=== PATIENT | female | born 1960 | race Caucasian/White ===

== ENCOUNTER 2024-11-12 10:41 | Outpatient (CLI) | payer MEDICARE, MEDICAID, SELFPAY ==
--- OUTSIDE RECORDS SUMMARY | 2024-11-12 11:10 | XMS_ITS | Clinical Summary ---
Author Organization [facility] Address [address] [place] [address] Care Team Providers Care Sash Sticker Name Role Phone Dean Plascencia MD Primary Care Provider [phone] Allergies Active Allergy Reactions Criticality Noted Date Comments Penicillins Anaphylaxis High 07/19/2024 Sulfa Antibiotics Anaphylaxis High 09/20/2020 Medications SYMBICORT 160-4.5 MCG/ACT inhaler Inhale 2 puffs into the lungs 2 (two) times daily. 12/10/19 23 Active atorvastatin (LIPITOR) 10 MG tablet Take 1 tablet (10 mg total) by mouth nightly at bedtime. 06/14/20 23 Active albuterol sulfate HFA 108 (90 Base) MCG/ACT inhaler Inhale 2 puffs into the lungs every 4 (four) hours as needed for Wheezing or Shortness of breath. 8 g 07/13/19 24 Active cetirizine (ZYRTEC) 10 MG tablet Take 1 tablet (10 mg total) by mouth daily. 30 tablet 08/25/19 24 Active Additional Information Patient not taking.Reported on 02/01/2024 hydroCHLOROthiazid e (MICROZIDE) 12.5 MG capsule Take 1 capsule (12.5 mg total) by mouth every morning. 30 capsule 11/28/19 24 Active Additional Information Patient not taking.Reported on 02/01/2024 montelukast (SINGULAIR) 10 MG tablet Take 1 tablet (10 mg total) by mouth daily. 01/22/20 24 Active lidocaine 4 % patch Place 1 patch onto the skin daily. Remove & Discard patch within 12 hours or as directed by 30 patch 02/03/20 24 Active metroNIDAZOLE (FLAGYL) 500 MG tablet Take 1 tablet (500 mg total) by mouth every 8 (eight) hours. 26 tablet 02/03/20 24 Active famotidine (PEPCID) 20 MG tablet Take 1 tablet (20 mg total) by mouth every 12 (twelve) hours. 60 tablet 02/03/20 24 Active ondansetron (ZOFRAN-ODT) 8 MG disintegrating tabletIndications: Diverticulitis Take 1 tablet (8 mg total) by mouth every 6 (six) hours. 7 tablet 02/03/20 24 Active Active Problems Problem Noted Date Diagnosed Date Diverticulitis 02/01/2024 Chest wall pain 09/20/2022 Chronic obstructive pulmonary disease ([facility] 09/20/2022 Resolved Problems Problem Noted Date Diagnosed Date Resolved Date COPD exacerbation ([facility]) 07/12/2023 02/03/2024 Lightheadedness 05/21/2023 05/22/2023 Syncope and collapse 11/21/2019 024 Encounters Date Type Department Care Team Description 09/10/2024 1:26 PM CABLE LACER - 09/10/2024 5:55 PM [facility] Emergency [facility] [place] [address] Michael Waggoner NP Chest Pain Discharge Disposition: Home or Self Care (Routine Discharge) 09/10/2024 Travel 09/09/2024 9:55 AM CABLE LACER - 09/09/2024 11:59 PM [facility] Hospital Encounter [facility] [place] [address] Daen Plascencia MD Discharge Disposition: Home or Self Care (Routine Discharge) 09/08/2024 2:23 PM CABLE LACER - 09/08/2024 11:59 PM [facility] Hospital Encounter [facility] [place] [address] Dean Plascencia MD Discharge Disposition: Home or Self Care (Routine Discharge) 09/08/2024 Travel 08/24/2024 Telephone [facility], [address] [address] Macario Dent MD Schedule Test from Last 3 Months Immunizations Immunization Administration Dates Next Due PFIZER COVID-19 (ORIGINAL FO RMULATION, PURPLE CAP) mRNA, LNP-S, PF, 30 MCG/0.3 ML DOSE 10/06/2020,09/16/2020 Tdap (Boostrix) 01/04/2024 Social History Tobacco Use Types Packs/Day Years Used Date Smoking Tobacco: Former Smokeless Tobacco: Never Tobacco Cessation:Counseling Given: Not Answered Alcohol Use Standard Drinks/Week Comments Never 0 (1 standard drink = 0.6 oz pur e alcohol) B1300 Health Literacy Answer Date Recor ded How often do you need to hav e someone help you when you read instructions, pamphlets, or other written material from your doctor or pharmacy? Often 02/01/2024 [facility] Utilities Answer Date Recorded In the past 12 months has e [employer], gas, oil, or water [employer] threatened to shut off services in your home? No 02/01/2024 Humiliation, Afraid, Rape, and Kick questionnair e Answer Date Recorded Within the last year, have y ou been afraid of your partner or ex-partner? No 02/01/2024 Within the last year, have y ou been humiliated or emotionally abused in other ways by your partner or ex-partner? No Within the last year, have y ou been kicked, hit, slapped, or otherwise physically hurt by your partner or ex-partner? No 02/01/2024 Within the last year, have y ou been raped or forced to have any kind of sexual activity by your partner or ex-partner? No 02/01/2024 Social Connection and Isolat ion Panel [NHANES] Answer Date Recorded In a typical week, how many times do you talk on the phone with family, friends, or neighbors? More than three times a week 02/01/2024 How often do you get togethe r with friends or relatives? More than three times a week 02/01/2024 How often do you attend [facility] or pentecostalism services? 1 to 4 times per year 02/01/2024 Do you belong to any clubs o r organizations such as jain groups, unions, fraternal or athletic groups, or school groups? No 02/01/2024 How often do you attend meet ings of the clubs or organizations you belong to? Never 02/01/2024 Are you , , di vorced, , never , or living with a partner? Never 02/01/2024 AUDIT-C Answer Date Recorded Q1: How often do you have a drink containing alcohol? Never 02/01/2024 Q2: How many drinks containi ng alcohol do you have on a typical day when you are drinking? Patient does not drink Q3: How often do you have si x or more drinks on one occasion? Never 02/01/2024 Overall Financial Resource Strain (CARDIA) Answe r Date Recorded How hard is it for you to pa y for the very basics like food, housing, medical care, and heating? Not hard at all 02/01/2024 [facility] - Occupational Stress Questionnaire Answer Date Recorded Do you feel stress - tense, restless, nervous, or anxious, or unable to sleep at night because your mind is troubled all the time - these days? Only a little 02/01/2024 Exercise Vital Sign Answer Date Recorde d On average, how many days pe r week do you engage in moderate to strenuous exercise (like a brisk walk)? 0 days 02/01/2024 On average, how many minutes do you engage in exercise at this level? 0 min 02/01/2024 Hunger Vital Sign Answer Date Recorded Within the past 12 months, y ou worried that your food would run out before you got the money to buy more. Often true 02/01/20 24 Within the past 12 months, t he food you bought just didn't last and you didn't have money to get more. Often true 02/01/2024 PRAPARE - Transportation Answer Date Re corded In the past 12 months, has l ack of transportation kept you from medical appointments or from getting medications? No 01/06 In the past 12 months, has l ack of transportation kept you from meetings, work, or from getting things needed for daily living? No 02/01/2024 Housing Stability Vital Sign Answer Juan e Recorded In the last 12 months, was t here a time when you were not able to pay the mortgage or rent on time? No 07/12/2023 In the last 12 months, how many places have you lived? 1 07/12/2023 In the last 12 months, was t here a time when you did not have a steady place to sleep or slept in a [place] (including now)? No 07/12/2023 Housing Stability Vital Sign Answer Juan e Recorded In the last 12 months, was t here a time when you were not able to pay the mortgage or rent on time? No 02/01/2024 In the past 12 months, how m any times have you moved where you were living? 1 02/01/2024 At any time in the past 12 m [facility], were you homeless or living in a [place] facility (including now)? No 02/01/2024 Comments No Sex and Gender Information Value Date Recorded Sex Assigned at Female 09/08/2024 2:19 PM CABLE LACER Legal Sex Female 7:01 PM CDT Gender Identity Not on file Sexual Orientation Not on file Last Filed Vital Signs Vital Sign Reading Time Taken Comments Blood Pressure 148/62 09/10/2024 5:54 PM CABLE LACER Pulse 62 09/10/2024 5:54 PM CABLE LACER Temperature 36.9 C (98.5 F) 09/10/2024 1:27 PM CABLE LACER Respiratory Rate 16 09/10/2024 5:54 PM CABLE LACER Oxygen Saturation 100% 09/10/2024 1:27 PM CABLE LACER Inhaled Oxygen Concentration - - Weight 81.6 kg (180 lb) 09/10/2024 1:27 PM CABLE LACER Height 149.9 cm (4' 11 ) 09/10/2024 1:27 PM CABLE LACER Body Mass Index 36.36 09/10/2024 1:27 PM CABLE LACER Plan of Treatment Health Maintenance Due Date Last Done Comments Colorectal Cancer Screening Colonoscopy (10 Years) 1958 Hepatitis C 1976 Pneumococcal Vaccine: 50+ Years (1 of 2 - PCV) 1977 Mammogram Screening 1998 Zoster Vaccines (1 of 2) 2008 RSV Immunization or 60+ Years (1 - Risk 60-74 years 1-dose series) 2018 Dexa Scan (General) 12/25/2023 COVID-19 Vaccine (3 - 2023-2 5 season) 2024 10/06/2020, 09/16/2020 DTaP, Tdap and Td Vaccines ( 3 - Td or Tdap) 01/03/2034 01/04/2024, 11/10/2021 Meningococcal B Vaccine Aged Out No l onger eligible based on patient's age to complete this topic Meningococcal Vaccine Aged Out No susana shubham eligible based on patient's age to complete this topic RSV Immunizations Under 20 Months Aged Out No longer eligible b ased on patient's age to complete this topic Goals Goal Patient Goal Type Associated Problems Recent Progress Patient-Stated? Author Health - patient able to perform ADLs independently Lifestyle Diamond Watkins RN Procedures Procedure Name Priority Date/Time Associated Diagnosis Comments TROPONIN, QUANT STAT 09/10/2024 4:35 PM CABLE LACER ECG 12-LEAD STAT 09/10/2024 4:27 PM CABLE LACER XR CHEST PORTABLE STAT 09/10/2024 1:4 4 PM CABLE LACER CK (CPK) STAT 09/10/2024 1:44 PM CABLE LACER TROPONIN, QUANT STAT 09/10/2024 1:44 PM CABLE LACER COMPREHENSIVE METABOLIC PANEL STAT 09/10/2024 1:44 PM CABLE LACER CBC W/DIFF AUTOMATED STAT 09/10/2024 1:44 PM CABLE LACER ECG 12-LEAD STAT 09/10/2024 1:27 PM CABLE LACER NM PHARM NUC STRESS TEST 1DAY W TRACING Routine 09/09/2024 11:51 AM CABLE LACER BAPTISTE (dyspnea on exertion) CARDIOLOGY STRESS TEST ONLY, EXERCISE Routine 09/09/2024 10:02 AM CABLE LACER BAPTISTE (dyspnea on exertion) Chronic obstructive pulmonary disease (CMS/HCC HHS/HCC) Chest wall pain USE ECHOCARDIOGRAM Routine 09/08/2024 4: 02 PM CABLE LACER Other forms of dyspnea from Last 3 Months Results * TROPONIN, QUANT (09/10/2024 4:35 PM CABLE LACER) Only the most recent of2 resultswithin the time period is included. TROPONIN I HIGH SENSITIVITY 9 <54 ng/L 09/10/2024 5:27 PM CABLE LACER [facility] Comment: HIGH DOSES OF BIOTIN, TROPONIN-SPECIFIC AUTOANTIBODIES, AND ANTIBODY THERAPY CONTAINING HAMA MAY INTERFERE WITH THIS TEST RESULT. CORRELATION TO CLINICAL HISTORY AND PRESENTATION RECOMMENDED. 09/10/2024 4:35 PM CABLE LACER Michael Waggoner PHYSICAL SCIENCE TECHNICIAN LABORATORY Final Result [facility] [address] [place] [address], * ECG 12 lead (09/10/2024 4:27 PM CABLE LACER) Only the most recent of2 resultswithin the time period is included. 09/10/2024 4:27 PM CABLE LACER Narrative [facility] RAD - 09/10/2024 11:10 PM CABLE LACER [address] Test Date: 2024-09-10 Pat Name: CHANEL URBANO Department: 41 Room: [facility] Gender: Female [employer]: : 1960 Requested By: LUIS E BOGGS Order Number: [id number] Reading MD: Sarah Mobley Measurements Intervals [place] Rate: 71 P: 18 [place]: 158 QRS: 16 QRSD: 70 T: 52 QT: 380 QTc: 413 Interpretive Statements SINUS RHYTHM LOW QRS VOLTAGE IN PRECORDIAL LEADS [QRS DEFLECTION < 1.0 mV IN CHEST LEADS] Compared to ECG 09/10/2024 13:27:34 No significant changes E LACER Procedure Note Sarah Mobley MD - 09/10/[address] Test Date: 2024-09-10 Pat Name: CHANEL URBANO Department: 41 Room: [id number] Gender: Female [employer]: : 1960 Requested By: LUIS E BOGGS Order Number: [id number] Reading MD: Sarah Mobley Measurements Intervals [place] Rate: 71 P: 18 [place]: 158 QRS: 16 QRSD: 70 T: 52 QT: 380 QTc: 413 Interpretive Statements SINUS RHYTHM LOW QRS VOLTAGE IN PRECORDIAL LEADS [QRS DEFLECTION < 1.0 mV IN CHESTLEADS] Compared to ECG 09/10/2024 13:27:34 No significant changes E LACER us Michael Waggoner NP ECG ORDERABLES Final Result [facility] RAD * XR CHEST PORTABLE (09/10/2024 1:44 PM CABLE LACER) Anatomical Region Laterality Modality Chest Radiographic Cary ging 09/10/2024 1:45 PM CABLE LACER Impressions 09/10/2024 1:49 PM CABLE LACER Impression: No acute findings. Referred By: Interpreted By: Ezekiel John MD, 09/10/2024 1:45 PM Narrative 09/10/2024 1:49 PM CABLE LACER [address] [address] Examination: Chest 1 view portable History: Chest pain DATE/TIME: 09/10/2024 1:30 PM Comparison: 07/19/2024 Technique: AP upright portable view of the chest was obtained. Findings: Mildly prominent heart size. Mediastinal contours and pulmonary vasculature are within normal limits. No pulmonary consolidation, pleural effusion or pneumothorax. No acute osseous abnormality. Procedure Note Ezekiel John MD - 03/06/2025 [facility] [address] [place], [place] [address] Examination: Chest 1 view portable History: Chest pain DATE/TIME: 09/10/2024 1:30 PM Comparison: 07/19/2024 Technique: AP upright portable view of the chest was obtained. Findings: Mildly prominent heart size. Mediastinal contours and pulmonaryvasculature are within normal limits. No pulmonary consolidation, pleuraleffusion or pneumothorax. No acute osseous abnormality. Impression: No acute findings. Referred By: Interpreted By: Ezekiel John MD, 09/10/2024 1:45 PM Michael Waggoner NP GENERAL IMAGING Final Result * (ABNORMAL) COMPREHENSIVE METABOLIC PANEL (09/10/2024 1:44 PM CABLE LACER) GLUCOSE 107(H) 70 - 99 MG/DL 09/10/2024 2:27 PM CABLE LACER [facility] BUN 12 7 - 18 MG/DL 09/10/2024 2:27 PM CABLE LACER [facility] CREATININE S/P/B 0.71 0.55 - 1.02 MG/DL 09/10/2024 2:27 PM CABLE LACER [facility] SODIUM S/P/B 137 136 - 145 MMOL/L 09/10/2024 2:27 PM CABLE LACER [facility] POTASSIUM S/P/B 3.8 3.5 - 5.1 MMOL/L 09/10/2024 2:27 PM CABLE LACER [facility] CHLORIDE S/P/B 105 97 - 115 MMOL/L 09/10/2024 2:27 PM [facility] CO2 24.0 21 - 32 MMOL/L 09/10/2024 2:27 PM [facility] CALCIUM S/P/B 9.2 8.5 - 10.1 MG/DL 09/10/2024 2:27 PM [facility] BILIRUBIN TOTAL S/P/B 0.4 0.2 - 1.2 MG/DL 09/10/2024 2:27 PM [facility] Comment: THIS ASSAY IS NOT RECOMMENDED FOR PATIENTS UNDERGOING TREATMENT WITH ELTROMBOPAG DUE TO THE POTENTIAL FOR FALSELY ELEVATED RESULTS. TOTAL PROTEIN S/P/B 7.8 6.4 - 8.2 G/DL 09/10/2024 2:27 PM [facility] ALBUMIN S/P/B 3.3(L) 3.4 - 5.0 G/DL 09/10/2024 2:27 PM [facility] AST 18 15 - 37 U/L 09/10/2024 2:27 PM [facility] ALT 23 14 - 55 U/L 09/10/2024 2:27 PM [facility] ALKALINE PHOSPHATASE S/P/B 134 50 - 136 U/L 09/10/2024 2:27 PM [facility] ANION GAP 8.0 2 - 10 MMOL/L 09/10/2024 2:27 PM [facility] BUN CREATININE RATIO 16.9 6 - 26 09/10/2024 2:27 PM [facility] A/G RATIO 0.7(L) 1.0 - 2.0 RATIO 09/10/2024 2:27 PM [facility] GFR ESTIMATE >90 >90 ML/MIN/1.7 3 M2 09/10/2024 2:27 PM [facility] Comment: NOTE: eGFR is not calculated for patients <18 years of age or gender unknown. This is an estimated GFR calculation using the new CKD EPI creatinine equation without race and so does not require a correction factor for race. This estimated GFR should not be used for calculating drug doses. 09/10/2024 1:44 PM CABLE LACER Michael Mcclendon Edilson PHYSICAL SCIENCE TECHNICIAN LABORATORY Final Result [facility] [address] [place] [address], [place] [phone] * (ABNORMAL) CBC W/DIFF AUTOMATED (09/10/2024 1:44 PM CABLE LACER) WBC 11.27(H) 4.5 - 11.0 x10'3/uL 09/10/2024 1:57 PM CABLE LACER [facility] RBC 4.67 4.20 - 5.40 x10'6/uL 09/10/2024 1:57 PM CABLE LACER [facility] HGB 13.5 12.0 - 16.0 G/DL 09/10/2024 1:57 PM CABLE LACER [facility] HCT 41.6 38.0 - 48.0 % 09/10/2024 1:57 PM CABLE LACER [facility] MCV 89.1 81.0 - 99.0 FL 09/10/2024 1:57 PM CABLE LACER [facility] MCH 28.9 27.0 - 31.0 PG 09/10/2024 1:57 PM CABLE LACER [facility] MCHC 32.5 32.0 - 36.0 G/DL 09/10/2024 1:57 PM CABLE LACER [facility] RDW 13.3 11.5 - 14.5 % 09/10/2024 1:57 PM CABLE LACER [facility] PLT 339 130 - 400 x10'3/uL 09/10/2024 1:57 PM CABLE LACER [facility] MPV 9.5 9.3 - 12.2 FL 09/10/2024 1:57 PM CABLE LACER [facility] DIFFERENTIAL TYPE AUTOMATED DIFFERENTIAL 09/10/2024 1:57 PM CABLE LACER [facility] NEUTROPHILS % 74.0 % 09/10/2024 1:57 PM CABLE LACER [facility] LYMPHOCYTES % 17.6 % 09/10/2024 1:57 PM CABLE LACER [facility] MONOCYTES % 5.9 % 09/10/2024 1:57 PM CABLE LACER [facility] EOSINOPHILS 1.5 % 09/10/2024 1:57 PM CABLE LACER [facility] BASOPHILS 0.4 % 09/10/2024 1:57 PM CABLE LACER [facility] IMMATURE GRANS % 0.6 % 09/11/19 1:57 PM CABLE LACER [facility] ABS. NEUTROPHILS 8.34(H) 1.80 - 7.70 x10'3/uL 09/10/2024 1:57 PM CABLE LACER [facility] ABS. LYMPHOCYTES 1.98 1.00 - 4.80 x10'3/uL 09/10/2024 1:57 PM CABLE LACER [facility] ABS. MONOCYTES 0.66 0.24 - 0.86 x10'3/uL 09/10/2024 1:57 PM CABLE LACER [facility] ABS. EOSINOPHILS 0.17 0.04 - 0.36 x10'3/uL 09/10/2024 1:57 PM CABLE LACER [facility] ABS. BASOPHILS 0.05 0.01 - 0.08 x10'3/uL 09/10/2024 1:57 PM CABLE LACER [facility] ABS. IMMATURE GRANULOCYTES 0.07 0.00 - 0.49 x10'3/uL 09/10/2024 1:57 PM CABLE LACER [facility] 09/10/2024 1:44 PM CABLE LACER us Michael Waggoner NP LABORATORY Final Result [facility] [address] [place] [address], [place] [phone] * CK (CPK) (09/10/2024 1:44 PM CABLE LACER) CPK 38 21 - 215 U/L 09/10/2024 2:26 PM CABLE LACER [facility] 09/10/2024 1:44 PM CABLE LACER Michael Waggoner PHYSICAL SCIENCE TECHNICIAN LABORATORY Final Result [facility] [address] [place] [address], [place] [phone] * NM PHARM NUC STRESS TEST 1 DAY W TRACING (09/09/2024 11:51 AM CABLE LACER) Anatomical Region Laterality Modality Cardiac Nuclear Medicine 09/09/2024 10:3 4 AM CABLE LACER Narrative 09/11/2024 7:58 AM CABLE LACER Myocardial Perfusion Imaging Pat.Name: CHANEL URBANO.ID: [id number] .Date: 09/09/2024 Refer.MD: Dean Plascencia [id number] Exam Time: 10:34:00 AM Study Type:DEMI NC HT MUSCLE IMAGE SPECT MULTI Height: 59 in Weight: 178 lb BSA: 1.75 m2 Age: 6 1960,63Y Sex: F Sonogrphr: TYRESE Velasco Pat. Stat.:Outpatient Reason for Study:Chest pain, Shortness of breath, Left arm pain, Back pain History / Clinical:COPD Procedures: Nuclear Stress Test with Lexiscan Race: W Surgery: Nuclear Stress Test, Echocardiogram, Stress Echo ++++++++++++++++++++++++++++++++++++ SUMMARY: ++++++++++++++++++++++++++++++++++++ Stress conclusion: 1. Clinically negative. 2. Electrocardiographically negative stress test for ischemia. 3. Scintigraphic images to follow. Perfusion conclusion: 1. Good study quality. No motion correction was applied to images. No attenuation is noted. Prone imaging was performed. 2. Normal myocardial perfusion SPECT imaging. 3. Normal wall motion with an ejection fraction of 91%. 4. Stress test with myocardial perfusion imaging shows overall low risk for a cardiac event. ++++++++++++++++++++++++++++++++++++ FINDINGS: ++++++++++++++++++++++++++++++++++++ Protocol: Lexiscan 0.4mg was given as a rapid injection IV over a period of 10 seconds with the radiopharmaceutical injected at 20 seconds. The images were processed using the standard SPECT technique. A gated study was performed on the stress images. Impression: SPECT images demonstrate normal perfusion of normal intensity. Heart Size: The left ventricle is normal. LV Wall Motion: The LVEF is calculated to be 91%. Gated SPECT images reveal normal wall motion. Transient Ischemic Dilatation: The TID is 0.85. ++++++++++++++++++++++++++++++++++++ STRESS: ++++++++++++++++++++++++++++++++++++ Baseline Vital Signs: ECG: Sinus rhythm HR: 67 bmp Rest BP: 159/79 Regadenoson Peak Dose: 0.4 mg Stress Test Results: Max HR: 97 bmp Target HR: 155 bmp % Target: 63 % Max BP: 167/90 Max RPP: [id number] O2 sat: 100 % Symptoms and Complications: Terminated: Protocol completed Symptoms: Nausea Complications: None Stress ECG Interp: Sinus rhythm <Electronic Signature> 09/11/2024 07:58 AM Macario Dent M.D. Procedure Note Macario Dent MD - 09/11/2024 Myocardial Perfusion Imaging Pat.Name: CHANEL URBANO.ID: [id number] .Date: 09/09/2024 Refer.MD: Dean Plascencia [id number] Exam Time: 10:34:00 AM Study Type:DEMI NC HT MUSCLE IMAGE SPECT MULTI Height: 59 in Weight: 178 lb BSA: 1.75 m2 Age: 6 1960,63Y Sex: F Sonogrphr: TYRESE Velasco Pat. Stat.:Outpatient Reason for Study:Chest pain, Shortness of breath, Left arm pain, Back pain History / Clinical:COPD Procedures: Nuclear Stress Test with Lexiscan Race: W Surgery: Nuclear Stress Test, Echocardiogram, Stress Echo ++++++++++++++++++++++++++++++++++++ SUMMARY: ++++++++++++++++++++++++++++++++++++ Stress conclusion: 1. Clinically negative. 2. Electrocardiographically negative stress test for ischemia. 3. Scintigraphic images to follow. Perfusion conclusion: 1. Good study quality. No motion correction was applied to images. No attenuation is noted. Prone imaging was performed. 2. Normal myocardial perfusion SPECT imaging. 3. Normal wall motion with an ejection fraction of 91%. 4. Stress test with myocardial perfusion imaging shows overall low risk for a cardiac event. ++++++++++++++++++++++++++++++++++++ FINDINGS: ++++++++++++++++++++++++++++++++++++ Protocol: Lexiscan 0.4mg was given as a rapid injection IV over a period of 10 seconds with the radiopharmaceutical injected at 20 seconds. The images were processed using the standard SPECT technique. A gated study was performed on the stress images. Impression: SPECT images demonstrate normal perfusion of normal intensity. Heart Size: The left ventricle is normal. LV Wall Motion: The LVEF is calculated to be 91%. Gated SPECT images reveal normal wall motion. Transient Ischemic Dilatation: The TID is 0.85. ++++++++++++++++++++++++++++++++++++ STRESS: ++++++++++++++++++++++++++++++++++++ Baseline Vital Signs: ECG: Sinus rhythm HR: 67 bmp Rest BP: 159/79 Regadenoson Peak Dose: 0.4 mg Stress Test Results: Max HR: 97 bmp Target HR: 155 bmp % Target: 63 % Max BP: 167/90 Max RPP: 42046 O2 sat: 100 % Symptoms and Complications: Terminated: Protocol completed Symptoms: Nausea Complications: None Stress ECG Interp: Sinus rhythm <Electronic Signature> 09/11/2024 07:58 AM Macario Dent M.D. us Dean Plascencia MD NUC MED Final Result * USE ECHOCARDIOGRAM (09/08/2024 4:02 PM CABLE LACER) Anatomical Region Laterality Modality Cardiac Echocardiogram 09/08/2024 3:25 PM CABLE LACER Narrative 09/08/2024 8:51 PM CABLE LACER Echocardiography Report Pat.Name: CHANEL URBANO Pat.ID: [id number] .Date: 09/08/2024 Refer.: [id number] CLARA Mcclendon EWDPROV EWDPROV Exam Time: 3:25:00 PM Study Type:ECHO WITH CARDIAC DOPPLER COMP Height: 59 in Weight: 178 lb BSA: 1.75 m2 Age: 6 1960,63Y Sex: F BP: 144/80 HR: 69 bpm Sonogrphr: Katt Browning Pat. Stat.:Outpatient Reason for Study:Shortness of breath History / Clinical:Family history CAD, Ex-Smoker Procedures: 2D, M-mode, Doppler, Color Flow, The study quality is technically adequate. Race: W ++++++++++++++++++++++++++++++++++++ SUMMARY: ++++++++++++++++++++++++++++++++++++ The left ventricular systolic function is normal. Estimated left ventricular ejection fraction is 55-60%. Left ventricular diastolic function is normal. Wall motion appears normal in all segments. Mild aortic valve sclerosis. Compared to the previous study the ejection fraction has remained preserved. ++++++++++++++++++++++++++++++++++++ FINDINGS: ++++++++++++++++++++++++++++++++++++ LV: The left ventricular size is normal. The left ventricular systolic function is normal. Estimated left ventricular ejection fraction is 55-60%. There is no left ventricular hypertrophy. Left ventricular diastolic function is normal. WM: Wall motion appears normal in all segments. RV: The right ventricular size is normal. Right ventricular systolic function is normal. IVS: No evidence of ventricular septal defect. LA: The left atrial size is normal. The left atrial volume is normal ( less than 34 ml/M2). RA: Right atrial size is normal. IAS: Atrial septum appears intact. LUAN: No evidence of pericardial effusion. AO: Aorta is normal. PA: Estimated right atrial pressure of 3 mmHg. Unable to reliably quantitate pulmonary systolic pressure. SVn: Systemic veins are normal. Other: Compared to the previous study the ejection fraction has remained preserved. AV: The aortic valve is trileaflet. No evidence of aortic valve stenosis. No evidence of aortic valve regurgitation. Mild aortic valve sclerosis. MV: Structurally normal mitral valve. Trace mitral regurgitation. No evidence of mitral stenosis. PV: Trace pulmonic regurgitation. No evidence of pulmonic valve stenosis. Pulmonic valve not well visualized. TV: No evidence of tricuspid regurgitation. No evidence of tricuspid valve stenosis. ++++++++++++++++++++++++++++++++++++ MEASUREMENTS: ++++++++++++++++++++++++++++++++++++ DOPPLER LVOT LVOTpkPG 4.62 mmHg LVOTmnPG 1.98 mmHg LVOTpkVel 107 cm/s (70-110)+ LVOT CO 4.4 l/min LVOT TVI 23.7 cm AV Forward Flow AV AC/ET 0.167 AV pkPG 7.3 mmHg AV mnPG 4.13 mmHg Area (TVI) 1.28 cm2 (3-5)* AV AT 50 msec (83-118)+* Area (Danny) 1.24 cm2 (3-5)* AV ET 297 msec MV Forward Flow MV DeTm 254 msec MV E/A 0.751 MVA P1/2t 2.98 cm2 (4-6)* MV pkE 73.8 cm/s (60-130) MV P1/2t 74 msec (30-60)* MV pkA 98.3 cm/s Lat E' Lat e 9.04 cm/s Lat E/E' Lat E/e 8.16 Med E' Med e 5.7 cm/s Med E/E' Med E/e 12.9 Aortic Valve Mean Velocity 96.9 cm/s AV TVI 28.8 cm Peak Velocity 135 cm/s AV Continuity Equation by Peak Velocity Area 2.18 cm2 AV Continuity Equation by Velocity Time Integral Area 2.25 cm2 Left Ventricle Left Ventricula 151 mmHg Composite heart 68 bpm Mitral Valve Decel [place] 279 cm/s2 Mitral Valve A 1.33 HR 67 bpm Pulmonic Valve AC 90.5 millisecond Peak Velocity 104 cm/s PG mean 2.17 mmHg VTI 0.218 m Mean Velocity 67.9 cm/s PV ET 320 millisecond PG pk 4.33 mmHg PV AT/ET 0.282 Tricuspid Valve TV Free Wall Sa 8.23 cm/s 2D Left Ventricle LV CI 2.49 l/m/m2 LV vol d MOD A4 2.29 cm LVIDd 4.62 cm (4.3-5.1) LV vol d MOD A4 3.08 cm LVIDs 2.96 cm (2-4) LV vol d MOD A4 2.68 cm LV%fs 35.8 % (25-46) LV vol d MOD A4 2.68 cm LV CI 1.06 l/m/m2 LV vol d MOD A4 2.54 cm LV CI 0.703 l/m/m2 LV vol d MOD A4 2.46 cm LV CO 1.86 l/min LV vol d MOD A4 2.34 cm LV CO 1.23 l/min LV vol d MOD A4 2.24 cm LV CO BP 1.45 l/min LV vol d MOD A4 2.07 cm LV SV 27.6 ml LV vol d MOD A4 1.87 cm LV SV 18.7 ml LV vol d MOD A4 1.45 cm LV SV BP 21.7 ml LV vol d MOD A4 0.911 cm Left Ventricle 7.71 cm LV vol d MOD A4 2.81 cm Left Ventricle 7.43 cm LV vol d MOD A4 2.29 cm LV Semi-major A 6.87 cm LV vol d MOD A4 2.22 cm Left Ventricle 6.69 cm LV vol d MOD A4 2.26 cm Left Ventricle 5.96 cm LV vol d MOD A4 2.34 cm Left Ventricle 6.69 cm LV vol d MOD A4 2.39 cm LV Trunc Semi-m 0.567 cm LV vol d MOD A4 2.44 cm LV Area reyez 20 cm2 LV vol d MOD A4 2.56 cm LV Area reyez 17.5 cm2 LV vol s MOD A2 3.07 cm LVA% 41.4 % LV vol s MOD A2 3.05 cm LVA% 47.8 % LV vol s MOD A2 1.38 cm LV Area sys 11.7 cm2 LV vol s MOD A2 1.32 cm LV Area sys 9.13 cm2 LV vol s MOD A2 1.2 cm LV EF 61.1 % LV vol s MOD A2 1.25 cm LV EF 58.4 % LV vol s MOD A2 1.25 cm LV EF BP 57.5 % LV vol s MOD A2 1.2 cm LV EDV 45.2 ml LV vol s MOD A2 1.13 cm LV EDV 32 ml LV vol s MOD A2 1.04 cm LVEDV BP 21.5 ml LV vol s MOD A2 1.04 cm LV ESV 17.6 ml LV vol s MOD A2 0.877 cm LV ESV 13.3 ml LV vol s MOD A2 2.88 cm LVESV BP 9.14 ml LV vol s MOD A2 2.58 cm LV Mass 0.793 g/cm LV vol s MOD A2 2.38 cm Composite heart 68 bpm LV vol s MOD A2 2.12 cm Composite heart 66 bpm LV vol s MOD A2 1.75 cm Composite heart 68 bpm LV vol s MOD A2 1.52 cm Composite heart 67 bpm LV vol s MOD A2 1.43 cm Composite heart 68 bpm LV vol s MOD A2 1.34 cm LV vol d MOD A2 3.04 cm LV vol s MOD A4 2.27 cm LV vol d MOD A2 3.49 cm LV vol s MOD A4 2.61 cm LV vol d MOD A2 2.76 cm LV vol s MOD A4 1.33 cm LV vol d MOD A2 2.53 cm LV vol s MOD A4 1.21 cm LV vol d MOD A2 2.28 cm LV vol s MOD A4 1.11 cm LV vol d MOD A2 2.16 cm LV vol s MOD A4 1.04 cm LV vol d MOD A2 2.05 cm LV vol s MOD A4 1.03 cm LV vol d MOD A2 1.88 cm LV vol s MOD A4 1.03 cm LV vol d MOD A2 1.69 cm LV vol s MOD A4 0.96 cm LV vol d MOD A2 1.55 cm LV vol s MOD A4 0.911 cm LV vol d MOD A2 1.09 cm LV vol s MOD A4 0.665 cm LV vol d MOD A2 0.372 cm LV vol s MOD A4 0.296 cm LV vol d MOD A2 3.58 cm LV vol s MOD A4 2.68 cm LV vol d MOD A2 3.63 cm LV vol s MOD A4 2.64 cm LV vol d MOD A2 3.58 cm LV vol s MOD A4 2.46 cm LV vol d MOD A2 3.41 cm LV vol s MOD A4 2.17 cm LV vol d MOD A2 3.3 cm LV vol s MOD A4 1.85 cm LV vol d MOD A2 3.18 cm LV vol s MOD A4 1.63 cm LV vol d MOD A2 3.07 cm LV vol s MOD A4 1.45 cm LV vol d MOD A2 2.95 cm LV vol s MOD A4 1.3 cm LVPW LVPWd 0.837 cm Left Atrium LA a-p 3.13 cm (2.8-3.4) Major [place] (Sys 4.65 cm LA VOLBP 33.7 ml [place] (Sys 4.13 cm Rodriguez Disk Nu 9 Ratios IVS Ventricular Septum IVSd 0.766 cm Aorta AO Ds 3.33 cm Ascending Aorti 3.61 cm LV Area-Length Biplane LVEDV 38.5 ml LVESV 13.6 ml LV Area-Length Single Plane LVEDV 44 ml LVESV 17.4 ml LVEDV 34.9 ml LVESV 11.9 ml LVOT LVOTArea 2.74 cm2 Cardiovascular 1.87 cm Pulmonary Veins Pul Vn A Dur 122 millisecond Pul Vn sys Vmax 70 cm/s Pul Vein Atrial 24.6 cm/s Pul Vn sys/reyez 1.49 Pul Vn Reyez Pk 46.9 cm/s Right Atrium [place] (Sys 4.56 cm Rodriguez Disk Nu 9 HR 67 bpm RA Area-Length Single Plane Volume (Systole 10.6 ml/m2 RA Single Plane RA sys Area 9.97 cm2 Volume (Systole 17.9 ml Right Ventricle [place] (Velia 7.09 cm Minor [place] (Velia 1.74 cm HR 67 bpm TA Cardiovascular 2.4 cm MMODE Left Ventricle Heart Rate-Ailyn 406 millisecond Composite HR fo 68 bpm Composite heart 68 bpm Tricuspid Valve Tricuspid annul 1.85 cm <Electronic Signature> 09/08/2024 08:51 PM Sarah Mobley M.D. Procedure Note Sarah Mobley MD - 09/08/2024 Echocardiography Report Pat.Name: CHANEL URBANO.ID: [id number] .Date: 09/08/2024 Refer.MD: [id number] CLARA Mcclendon EWDPROV EWDPROV Exam Time: 3:25:00 PM Study Type:ECHO WITH CARDIAC DOPPLER COMP Height: 59 in Weight: 178 lb BSA: 1.75 m2 Age: 6 1960,63Y Sex: F BP: 144/80 HR: 69 bpm Sonogrphr: Katt Browning Pat. Stat.:Outpatient Reason for Study:Shortness of breath History / Clinical:Family history CAD, Ex-Smoker Procedures: 2D, M-mode, Doppler, Color Flow, The study quality is technically adequate. Race: W ++++++++++++++++++++++++++++++++++++ SUMMARY: ++++++++++++++++++++++++++++++++++++ The left ventricular systolic function is normal. Estimated left ventricular ejection fraction is 55-60%. Left ventricular diastolic function is normal. Wall motion appears normal in all segments. Mild aortic valve sclerosis. Compared to the previous study the ejection fraction has remained preserved. ++++++++++++++++++++++++++++++++++++ FINDINGS: ++++++++++++++++++++++++++++++++++++ LV: The left ventricular size is normal. The left ventricular systolic function is normal. Estimated left ventricular ejection fraction is 55-60%. There is no left ventricular hypertrophy. Left ventricular diastolic function is normal. WM: Wall motion appears normal in all segments. RV: The right ventricular size is normal. Right ventricular systolic function is normal. IVS: No evidence of ventricular septal defect. LA: The left atrial size is normal. The left atrial volume is normal ( less than 34 ml/M2). RA: Right atrial size is normal. IAS: Atrial septum appears intact. LUAN: No evidence of pericardial effusion. AO: Aorta is normal. PA: Estimated right atrial pressure of 3 mmHg. Unable to reliably quantitate pulmonary systolic pressure. SVn: Systemic veins are normal. Other: Compared to the previous study the ejection fraction has remained preserved. AV: The aortic valve is trileaflet. No evidence of aortic valve stenosis. No evidence of aortic valve regurgitation. Mild aortic valve sclerosis. MV: Structurally normal mitral valve. Trace mitral regurgitation. No evidence of mitral stenosis. PV: Trace pulmonic regurgitation. No evidence of pulmonic valve stenosis. Pulmonic valve not well visualized. TV: No evidence of tricuspid regurgitation. No evidence of tricuspid valve stenosis. ++++++++++++++++++++++++++++++++++++ MEASUREMENTS: ++++++++++++++++++++++++++++++++++++ DOPPLER LVOT LVOTpkPG 4.62 mmHg LVOTmnPG 1.98 mmHg LVOTpkVel 107 cm/s (70-110)+ LVOT CO 4.4 l/min LVOT TVI 23.7 cm AV Forward Flow AV AC/ET 0.167 AV pkPG 7.3 mmHg AV mnPG 4.13 mmHg Area (TVI) 1.28 cm2 (3-5)* AV AT 50 msec (83-118)+* Area (Danny) 1.24 cm2 (3-5)* AV ET 297 msec MV Forward Flow MV DeTm 254 msec MV E/A 0.751 MVA P1/2t 2.98 cm2 (4-6)* MV pkE 73.8 cm/s (60-130) MV P1/2t 74 msec (30-60)* MV pkA 98.3 cm/s Lat E' Lat e 9.04 cm/s Lat E/E' Lat E/e 8.16 Med E' Med e 5.7 cm/s Med E/E' Med E/e 12.9 Aortic Valve Mean Velocity 96.9 cm/s AV TVI 28.8 cm Peak Velocity 135 cm/s AV Continuity Equation by Peak Velocity Area 2.18 cm2 AV Continuity Equation by Velocity Time Integral Area 2.25 cm2 Left Ventricle Left Ventricula 151 mmHg Composite heart 68 bpm Mitral Valve Decel [place] 279 cm/s2 Mitral Valve A 1.33 HR 67 bpm Pulmonic Valve AC 90.5 millisecond Peak Velocity 104 cm/s PG mean 2.17 mmHg VTI 0.218 m Mean Velocity 67.9 cm/s PV ET 320 millisecond PG pk 4.33 mmHg PV AT/ET 0.282 Tricuspid Valve TV Free Wall Sa 8.23 cm/s 2D Left Ventricle LV CI 2.49 l/m/m2 LV vol d MOD A4 2.29 cm LVIDd 4.62 cm (4.3-5.1) LV vol d MOD A4 3.08 cm LVIDs 2.96 cm (2-4) LV vol d MOD A4 2.68 cm LV%fs 35.8 % (25-46) LV vol d MOD A4 2.68 cm LV CI 1.06 l/m/m2 LV vol d MOD A4 2.54 cm LV CI 0.703 l/m/m2 LV vol d MOD A4 2.46 cm LV CO 1.86 l/min LV vol d MOD A4 2.34 cm LV CO 1.23 l/min LV vol d MOD A4 2.24 cm LV CO BP 1.45 l/min LV vol d MOD A4 2.07 cm LV SV 27.6 ml LV vol d MOD A4 1.87 cm LV SV 18.7 ml LV vol d MOD A4 1.45 cm LV SV BP 21.7 ml LV vol d MOD A4 0.911 cm Left Ventricle 7.71 cm LV vol d MOD A4 2.81 cm Left Ventricle 7.43 cm LV vol d MOD A4 2.29 cm LV Semi-major A 6.87 cm LV vol d MOD A4 2.22 cm Left Ventricle 6.69 cm LV vol d MOD A4 2.26 cm Left Ventricle 5.96 cm LV vol d MOD A4 2.34 cm Left Ventricle 6.69 cm LV vol d MOD A4 2.39 cm LV Trunc Semi-m 0.567 cm LV vol d MOD A4 2.44 cm LV Area reyez 20 cm2 LV vol d MOD A4 2.56 cm LV Area reyez 17.5 cm2 LV vol s MOD A2 3.07 cm LVA% 41.4 % LV vol s MOD A2 3.05 cm LVA% 47.8 % LV vol s MOD A2 1.38 cm LV Area sys 11.7 cm2 LV vol s MOD A2 1.32 cm LV Area sys 9.13 cm2 LV vol s MOD A2 1.2 cm LV EF 61.1 % LV vol s MOD A2 1.25 cm LV EF 58.4 % LV vol s MOD A2 1.25 cm LV EF BP 57.5 % LV vol s MOD A2 1.2 cm LV EDV 45.2 ml LV vol s MOD A2 1.13 cm LV EDV 32 ml LV vol s MOD A2 1.04 cm LVEDV BP 21.5 ml LV vol s MOD A2 1.04 cm LV ESV 17.6 ml LV vol s MOD A2 0.877 cm LV ESV 13.3 ml LV vol s MOD A2 2.88 cm LVESV BP 9.14 ml LV vol s MOD A2 2.58 cm LV Mass 0.793 g/cm LV vol s MOD A2 2.38 cm Composite heart 68 bpm LV vol s MOD A2 2.12 cm Composite heart 66 bpm LV vol s MOD A2 1.75 cm Composite heart 68 bpm LV vol s MOD A2 1.52 cm Composite heart 67 bpm LV vol s MOD A2 1.43 cm Composite heart 68 bpm LV vol s MOD A2 1.34 cm LV vol d MOD A2 3.04 cm LV vol s MOD A4 2.27 cm LV vol d MOD A2 3.49 cm LV vol s MOD A4 2.61 cm LV vol d MOD A2 2.76 cm LV vol s MOD A4 1.33 cm LV vol d MOD A2 2.53 cm LV vol s MOD A4 1.21 cm LV vol d MOD A2 2.28 cm LV vol s MOD A4 1.11 cm LV vol d MOD A2 2.16 cm LV vol s MOD A4 1.04 cm LV vol d MOD A2 2.05 cm LV vol s MOD A4 1.03 cm LV vol d MOD A2 1.88 cm LV vol s MOD A4 1.03 cm LV vol d MOD A2 1.69 cm LV vol s MOD A4 0.96 cm LV vol d MOD A2 1.55 cm LV vol s MOD A4 0.911 cm LV vol d MOD A2 1.09 cm LV vol s MOD A4 0.665 cm LV vol d MOD A2 0.372 cm LV vol s MOD A4 0.296 cm LV vol d MOD A2 3.58 cm LV vol s MOD A4 2.68 cm LV vol d MOD A2 3.63 cm LV vol s MOD A4 2.64 cm LV vol d MOD A2 3.58 cm LV vol s MOD A4 2.46 cm LV vol d MOD A2 3.41 cm LV vol s MOD A4 2.17 cm LV vol d MOD A2 3.3 cm LV vol s MOD A4 1.85 cm LV vol d MOD A2 3.18 cm LV vol s MOD A4 1.63 cm LV vol d MOD A2 3.07 cm LV vol s MOD A4 1.45 cm LV vol d MOD A2 2.95 cm LV vol s MOD A4 1.3 cm LVPW LVPWd 0.837 cm Left Atrium LA a-p 3.13 cm (2.8-3.4) [place] (Sys 4.65 cm LA VOLBP 33.7 ml [place] (Sys 4.13 cm Rodriguez Disk Nu 9 Ratios IVS Ventricular Septum IVSd 0.766 cm Aorta AO Ds 3.33 cm Ascending Aorti 3.61 cm LV Area-Length Biplane LVEDV 38.5 ml LVESV 13.6 ml LV Area-Length Single Plane LVEDV 44 ml LVESV 17.4 ml LVEDV 34.9 ml LVESV 11.9 ml LVOT LVOTArea 2.74 cm2 Cardiovascular 1.87 cm Pulmonary Veins Pul Vn A Dur 122 millisecond Pul Vn sys Vmax 70 cm/s Pul Vein Atrial 24.6 cm/s Pul Vn sys/reyez 1.49 Pul Vn Reyez Pk 46.9 cm/s Right Atrium [place] (Sys 4.56 cm Rodriguez Disk Nu 9 HR 67 bpm RA Area-Length Single Plane Volume (Systole 10.6 ml/m2 RA Single Plane RA sys Area 9.97 cm2 Volume (Systole 17.9 ml Right Ventricle [place] (Velia 7.09 cm [place] (Velia 1.74 cm HR 67 bpm TA Cardiovascular 2.4 cm MMODE Left Ventricle Heart Rate-Ailyn 406 millisecond Composite HR fo 68 bpm Composite heart 68 bpm Tricuspid Valve Tricuspid annul 1.85 cm <Electronic Signature> 09/08/2024 08:51 PM Sarah Mobley M.D. Dean Plascencia MD ECHO Final Result from Last 3 Months Insurance MEDICAID DEPT OF [address] Advance Directives Documents on File Type Date Recorded Patient Director Of Event Management Expl anation Advance Directives and Livin g Will 02/11/2024 3:07 PM * Full Code (Latest Code Status on File) Date Activated Date Inactivated Comments 02/01/2024 1:17 PM 02/03/2024 6:44 PM * Full Code Date Activated Date Inactivated Comments 07/12/2023 12:07 PM 07/13/2023 2:54 PM * Full Code Date Activated Date Inactivated Comments 07/12/2023 4:01 AM 07/12/2023 12:07 PM * Full Code Date Activated Date Inactivated Comments 05/21/2023 10:09 PM 05/22/2023 8:28 PM Healthcare Agents on File Name Relationship Healthcare Agent Relationshi p Communication Christopher Bedoya Health Care Agent Care Teams Sash Sticker Relationship Specialty Start Date End Date Dean Plascencia MD PCP - General INTERNAL MEDICINE 10/03/23
--- OUTSIDE RECORDS SUMMARY | 2024-11-12 11:10 | XMS_ITS | Clinical Summary ---
Author Organization [place] [id number] [facility] Address Formerly [facility] [place] [address] Care Team Providers Care Artificial Candy Maker Name Role Phone Huma Richard MD Primary Care Provider [phone] Allergies Active Allergy Reactions Criticality Noted Date Comments Sulfa (Sulfonamide Antibiotics) Anaphylaxis High Sulfamethoxazole-Trimethoprim Dizziness High 2022 Medications HYDROcodone-brittany taminophen (NORCO) 5-325 mg per tabletIndicatio ns:Pain Take 1 tablet by mouth every 6 (six) hours as needed for pain for up to 12 doses 12 tablet 1 Active hydroCHLOROthia zide (HYDRODIURIL) 12.5 mg tablet Take 1 tablet (12.5 mg total) by mouth daily for 14 days 14 tablet 1 Active albuterol HFA (PROVENTIL HFA,VENTOLIN HFA,PROAIR HFA) 90 mcg/actuation inhaler Inhale 2 puffs every 4 (four) hours as needed for wheezing 1 each 1 Active albuterol 2.5 mg /3 mL (0.083 %) nebulizer solution Take 3 mL (2.5 mg total) by nebulization every 6 (six) hours as needed for wheezing 75 mL 1 Active azithromycin (Zithromax Z-Hugo) 250 mg tablet Take 1 tablet (250 mg total) by mouth daily Take first 2 tablets together, then 1 every day until finished. 6 tablet 1 Active benzonatate (TESSALON) 100 mg capsuleIndicati ons:Cough Take 1 capsule (100 mg total) by mouth every 8 (eight) hours 21 capsule 1 Active lidocaine (LIDODERM) 5 %Indications:Pa in Place 1 patch on the skin daily Use patch for 12 hours on, 12 hours off. Discard after each use 7 patch 3 Active tiZANidine (ZANAFLEX) 2 mg tablet Take 1 tablet (2 mg total) by mouth every 6 (six) hours as needed for muscle spasms 30 tablet 3 Active busPIRone (BUSPAR) 10 mg tabletIndicatio ns:Generalized Anxiety Disorder Take 1 tablet (10 mg total) by mouth 2 (two) times a day 120 tablet 3 Active naproxen (NAPROSYN) 500 mg tablet Take 1 tablet (500 mg total) by mouth 2 (two) times a day with meals 30 tablet 3 Active Active Problems Problem Noted Date Diagnosed Date Paresthesia of skin 12/12/2023 Acute bronchitis 09/20/2022 Acute left otitis media 09/20/2022 Anxiety hyperventilation 09/20/2022 Chronic obstructive pulmonary disease 09/20/2022 Chest wall pain 09/20/2022 Perforation of tympanic membrane 09/20/2022 Tobacco dependence syndrome 09/20/2022 Vertigo 09/20/2022 Hypersensitivity reaction 11/21/2019 Syncope and collapse 11/21/2019 Social History Tobacco Use Types Packs/Day Years Used Date Smoking Tobacco: Never Assessed Personal Safety Answer Date Recorded Have you ever been in or are you currently in a harmful physical or emotional relationship or is someone making you feel afraid or unsafe? 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 Gender Identity Not on file Sexual Orientation Not on file Obstetrics History Last Filed Vital Signs Vital Sign Reading Time Taken Comments Blood Pressure 142/76 01/21/2023 1:53 PM CDT Pulse 68 01/21/2023 1:53 PM CDT Temperature 36.8 C (98.2 F) 01/21/2023 11:29 AM CDT Respiratory Rate 20 01/21/2023 1:53 PM CDT Oxygen Saturation 98% 01/21/2023 1:53 PM CDT Inhaled Oxygen Concentration - - Weight 79.6 kg (175 lb 7.8 oz) 01/21/2023 11:29 AM CDT Height 149.9 cm (4' 11.02 ) 01/21/2023 11:29 AM CDT Body Mass Index 35.42 01/21/2023 11:29 AM CDT Plan of Treatment Health Maintenance Due Date Last Done Comments Cervical Cancer Screening 1960 Colon Cancer Screening-Colonoscopy 1960 Depression Screening 1960 Fall Risk Assessment 1960 Hepatitis C Screening 1960 Osteoporosis Screening-Bone Density Scan 1960 Hepatitis B Screening 1976 Zoster Vaccine (1 of 2) 2008 Pneumococcal vaccine 65+ (2 of 2 - PCV) 02/05/2023 02/05/2022, 02/22/2021, 03/15/2016, Additional history exists Well Visit 65+ 12/25/2023 Covid-19 Vaccine (3 - 2023-2 5 season) 2024 10/06/2020, 09/16/2020 Influenza Vaccine (#1) 2024 3, 03/26/2022, 04/05/2020, Additional history exists Breast Cancer Screening-Mammogram 08/21/2024 024, 10/05/2021 DTaP/Tdap/Td Vaccine (2 - Td or Tdap) 11/11/2031 11/10/2021 Insurance [facility] HMO REF IDPA IDPA UHC MEDICARE ADVANTAGE [facility] HMO REF IDPA [facility] MEDICARE ADVANTAGE Care Teams Artificial Candy Maker Relationship Specialty Start Date End Date Huma Richard MD [address] [place] [address] PCP - General Internal Medicine 12/23/20
--- OUTSIDE RECORDS SUMMARY | 2024-11-12 11:10 | XMS_ITS | Referral Summary ---
Author Organization [place] [id number] [facility] Address Formerly [facility] [place] [address] Care Team Providers Care Scoring Machine Operator Name Role Phone Huma Richard MD Primary Care Provider [phone] Allergies Active Allergy Reactions Criticality Noted Date [...] on file Legal Sex Female 6:06 AM CLINICAL SYSTEMS ANALYST Gender Identity Not on file Sexual Orientation [...] 01/21/2023 11:29 AM CDT Plan of Treatment Not on file Insurance UHC MDCR HMO REF IDPA IDPA [facility] MEDICARE ADVANTAGE [facility] MDCR HMO REF IDPA [facility] MEDICARE ADVANTAGE Care Teams Scoring Machine Operator Relationship Specialty Start Date End Date Huma Richard MD [address] [place] [address] PCP - General Internal Medicine 12/23/20
--- OUTSIDE RECORDS SUMMARY | 2024-11-12 11:11 | XMS_ITS | Clinical Summary ---
Author Organization [facility] Address [address] [place] [address] Care Team Providers Care Project Management Professor Name Role Phone Unavailable Primary Care Provider Unavailabl e Social History Tobacco Use Types Packs/Day Years Used Date Smoking Tobacco: Never Assessed Comments Unknown Sex and Gender Information Value Date Recorded Sex Assigned at Not on file Legal Sex Female 6:38 PM APPLICATION RELEASE MANAGER Gender Identity Not on file Sexual Orientation Not on file Plan of Treatment Health Maintenance Due Date Last Done Comments DTAP/TDAP/TD VACCINES (1 - Tdap) 1977 BREAST CANCER SCREENING 1998 COLORECTAL SCREENING 12/25/2003 Colorectal Cancer Screening 12/25/2003 FIT-DNA Q 3 years 12/25/2003 FIT/FOBT Q 1 year 12/25/2003 Flex Sig/CT Colonography Q 5 years 12/25/2003 PNEUMOCOCCAL VACCINE 50+ YEARS (1 of 1 - PCV) 12/25/19 09 ZOSTER VACCINE (1 of 2) 2008 OSTEOPOROSIS SCREENING 12/25/2023 INFLUENZA VACCINE (#1) 2024 RSV VACCINE (60+ or ) (1 - 1-dose 75+ series) 2033 Insurance RX [employer] RX Member Subscriber Plan / Payer (Ef fective for All Dates) Name:Chanel Herr Relation to Subscriber:Self Name:Chanel Herr Subscriber ID:Not on file Payer ID:Not on file Group ID:[id number] Type:RX Medicare Part D Address: [address]
--- OUTSIDE RECORDS SUMMARY | 2024-11-12 11:11 | XMS_ITS | Clinical Summary ---
Author Organization [facility] Address [address] [place] [address] Care Team Providers Care Corporate Director Name Role Phone Huma Richard MD Primary Care Provider [phone] Source Comments [facility],non-owned Affiliates and Associated Physician Practices is amultiple site organization consisting of ambulatory clinics and hospital sitesin [place], [place], [place] and [place]. This disclosure is being madepursuant to the Care Everywhere program and may not contain all information available regarding this patient. Last updated 18.[facility] Allergies Active Allergy Reactions Criticality Noted Date Comments Penicillins Anaphylaxis High 08/11/2024 Sulfa Drugs Anaphylaxis High 11/20/2019 Medications * Be aware that medications may not be up to date on this document. Alwaysverify current medications with the patient. No known medications Active Problems Problem Noted Date Diagnosed Date Syncope and collapse 11/21/2019 Hypersensitivity reaction 11/21/2019 Social History Tobacco Use Types Packs/Day Years Used Date Smoking Tobacco: Former Smokeless Tobacco: Never Alcohol Use Standard Drinks/Week Comments Yes 0 (1 standard drink = 0.6 oz pur e alcohol) rarely Comments Unknown Sex and Gender Information Value Date Recorded Sex Assigned at Not on file Legal Sex Female 9:41 AM CDT Gender Identity Not on file Sexual Orientation Not on file Last Filed Vital Signs Vital Sign Reading Time Taken Comments Blood Pressure 121/71 08/12/2024 10:15 AM TIRE MOUNTER Pulse 72 08/12/2024 10:15 AM TIRE MOUNTER Temperature 36.1 C (96.9 F) 08/12/2024 10:15 AM TIRE MOUNTER Respiratory Rate 18 08/12/2024 10:15 AM TIRE MOUNTER Oxygen Saturation 94% 08/12/2024 10:15 AM TIRE MOUNTER Inhaled Oxygen Concentration - - Weight 81.6 kg (180 lb) 08/11/2024 5:07 PM TIRE MOUNTER Height 149.9 cm (4' 11 ) 08/11/2024 5:07 PM TIRE MOUNTER Body Mass Index 36.36 08/11/2024 5:07 PM TIRE MOUNTER Plan of Treatment Health Maintenance Due Date Last Done Comments BONE DENSITY TESTING 1958 COLON MONITORING 1958 COLONOSCOPY - COLON CA SCREENING 1958 CT COLONOGRAPHY - COLON CA SCREENING 1958 FIT - COLON CA SCREENING 1958 FLEX SIG - COLON CA SCREENING 1958 LIPID TESTING 1958 MAMMOGRAM 1958 PAP SMEAR 1958 HIV SCREENING 1973 HEPATITIS C SCREENING 12/19/1976 DTAP/TDAP/TD VACCINES (1 - Tdap) 1977 PNEUMOCOCCAL VACCINE 50+ (1 of 1 - PCV) 2008 ZOSTER VACCINE (1 of 2) 2008 COVID-19 VACCINE (5 - season) 2024 10/26/2022, 07/06/2021, 10/06/2020, Additional history exists DEPRESSION SCREENING 07/08/2024 MEDICARE AWV CALENDAR YEAR 2024 COLOGUARD (AGES 45-75) - COLON CA SCREENING 12/18/2026 12/19/2023 Colorectal Cancer Screening 12/18/2026 Respiratory Syncytial Virus (RSV) Vaccine Pt: or over 60 yrs (1 - 1-dose 75+ series) 2033 INFLUENZA VACCINE Completed 04/24/2024, , 03/26/2022, Additional history exists HEPATITIS B VACCINE Aged Out No longe r eligible based on patient's age to complete this topic HIB VACCINE Aged Out No longer eligi ble based on patient's age to complete this topic HPV VACCINE Aged Out No longer eligi ble based on patient's age to complete this topic MENINGOCOCCAL (Group B) VACCINE SHARED DECISION-MAKING Aged Out No longer eligible based on patient's age to complete this topic MENINGOCOCCAL GROUPS A/C/Y/W VACCINE Aged Out No longer eligible based on patient's age to complete this topic Insurance MEDICAID - [place] [facility] MANAGED MEDICARE ADV MANAGED MEDICARE ADV [place] [id number] [facility] MEDICAID - OUT OF STATE Advance Directives * LIMITED RESUSCITATION-PRIOR AND AFTER ARREST (Latest Code Status on File) Date Activated Date Inactivated Comments 11/21/2019 1:32 AM 11/21/2019 3:12 PM Question Answer Comments Limited Resuscitation: No Chest Compress ionNo Intubation, No Invasive Ventilation Care Teams Corporate Director Relationship Specialty Start Date End Date Huma Richard MD [address] [place] [address] PCP - General Internal Medicine 02/25/18
--- OUTSIDE RECORDS SUMMARY | 2024-11-12 11:11 | XMS_ITS | Data Portability ---
[facility] Organization [facility] [address] [place] [address] Care Team Providers Care Linker Up Name Role Phone ELI PLASCENCIA Primary Care Provider Assessment Encounter Date Assessment Date Assessment LastModified by Organization Details LastModified Time 04/24/2024 04/24/2024 screenings ordered where patient agreeable and appropriate. She will get a flu shot today bone density we will refill her Cipro and Flagyl she has a colonoscopy next [place] [id number] Not available 04/24/2024 15:06:03 05/27/2024 05/27/2024 high-fiber diet discussed diabetic diet discussed diverticulitis diverticulitis discussed GERD discussed follow up with me in 3 months [place] [id number] Not available 05/27/2024 12:12:41 07/24/2024 07/24/2024 her EKG shows a sinus rhythm with no clear-cut acute ischemic changes. Her dyspnea on exertion concerns me specially with the arm achiness in the sweaty episodes. I am going to set up noninvasive cardiovascular testing echocardiogram Lexiscan stress test. Healthy lifestyle care instructions she will keep her regular appointment but if she gets set left arm achiness and sweaty spells she has to go back to the ER [email or web address] Not available 07/25/2024 14:37:44 08/25/2024 08/25/2024 echocardiogram ordered Lexiscan stress test is ordered continue current therapy at this time she will see me back in 3 months and we will see what the testing shows again if she develops chest pain with arm achiness and sweaty episodes go to nearest hospital [place] [id number] Not available 09/27/2024 16:02:27 11/04/2024 11/04/2024 Dietary strategies for medical disease discussed with regards to prediabetes and dyslipidemia who had a Medrol Dosepak to or sinuses up healthy lifestyle care instructions like for her to lose about 10-15 lb follow up with me in 3 months Not available 11/08/2024 15:35:49 Plan of Treatment Reminders Order Date Submit Date Provider Last Modified By Organization Details Last Modified Time Details Appointments ANY 15 2024 10:00A M Eli Plascencia MD Not available Not available Not available Lab None recorded. Referral None recorded. Procedures lexiscan cardiolit e stress test (PROC) 2024 025 [facility] Scheduling, [address] [facility], [place], [address], 09/25/2024 13:57:24 Surgeries None recorded. Imaging US, echocardi ogram 2024 025 [facility] Scheduling, [address] [facility], [place], [address], 09/25/2024 13:57:24 electroca rdiogram 2024 025 [id number] In-Office Order, Internal Use Only DO Not Attach Compendium DO Not Attach Compendium, Do Not Delete/merge, [id number] 07/24/2024 16:15:18 bone density 2023 024 [facility] Scheduling, [address] [facility], [place], [address], 10/06/2024 09:53:01 Medication Orders Medrol (Hugo) 4 mg tablets in a dose pack 2024 025 [id number], [address], [place], [place], [id number], 11/04/2024 17:29:[address] 10 mg tablet 2024 025 [facility] #[id number], [address] [facility], [place], [place], [id number], 08/25/2024 13:04:57 atorvasta tin 10 mg tablet [email or web address] [facility] #[id number], [address] [facility], [place], [place], [id number], 09/02/2024 17:56:58 famotidin e 20 mg tablet [address] [facility]75998, [address] [facility], [place], [place], [id number], 08/25/2024 13:04:57 Symbicort 160 mcg-4.5 mcg/actua tion HFA aerosol inhaler [address] [facility]61344, [address] [facility], [place], [place], [id number], 08/25/2024 13:04:57 atorvasta tin 10 mg tablet [address] [facility] #61934, [address] [facility], [place], [place], [id number], 05/27/2024 12:49:50 famotidin e 20 mg tablet [address] [facility] #[id number], [address] [facility], [place], [place], [id number], 05/27/2024 12:49:50 Patient TargetsNo targets recorded. Patient Instructions Encounter Date Encounter Id Patient Instructions Last Modified By Organization Details Last Modified Time 04/24/2024 [id number] Medicare Well[employer] Preventive Checklist [email or web address] Not available 04/24/2024 14:22:21 eating healthy foods: care instructions [email or web address] Not available 04/24/2024 14:22:21 05/27/2024 [id number] A healthy lifestyle: care instructions [email or web address] Not available 05/27/2024 12:49:50 high cholesterol : care instructions Not available 05/27/2024 12:49:50 diverticulitis: care instructions [email or web address] Not available 05/27/2024 12:49:50 07/24/2024 [id number] A healthy lifestyle: care instructions [email or web address] Not available 07/24/2024 11:15:17 11/04/2024 [id number] A healthy lifestyle: care instructions [email or web address] Not available 11/04/2024 17:29:38 Reason for Referral None Reported. Results Created Date Observation Date Name Description Value Unit Range Abnormal Flag Note LastModifiedBy Organization Detail LastModifiedTime 06/16/2006/16/2024 Basic metab olic 2000 panel - Serum or Plasm a glucose [mass/volume ] in serum or plasma 113 text: 70 - 99 mg/dL high GLUCO SE 113 (H) 70 - 99 MG/DL 06/16 8:57 PM [employer] [facility] Not Available Not Available 08/25/2024 10:29:06 06/16/20 24 06/16/2024 Basic metab olic 2000 panel - Serum or Plasm a urea nitrogen [mass/volume ] in serum or plasma 12 text: 7 - 18 mg/dL BUN 12 7 - 18 MG/DL 06/16 8:57 PM [facility] Not Available Not Available 08/25/2024 10:29:06 06/16/20 24 06/16/2024 Basic metab olic 2000 panel - Serum or Plasm a creatinine [mass/volume ] in serum or plasma 0.72 text: 0.55 - 1.02 mg/dL CREAT ININE S/P/B 0.72 0.55 - 1.02 MG/DL 06/16 8:57 PM [employer] [facility] Not Available Not Available 08/25/2024 10:29:06 06/16/20 24 06/16/2024 Basic metab olic 2000 panel - Serum or Plasm a sodium [moles/volum e] in serum or plasma 141 text: 136 - 145 mmol/L SODIU M S/P/B 141 136 - 145 MMOL/ L 06/16 8:57 PM [facility] Not Available Not Available 08/25/2024 10:29:06 06/16/20 24 06/16/2024 Basic metab olic 2000 panel - Serum or Plasm a potassium [moles/volum e] in serum or plasma 4.6 text: 3.5 - 5.1 mmol/L POTAS SIUM S/P/B 4.6 3.5 - 5.1 MMOL/ L 06/16 8:57 PM [facility] Not Available Not Available 08/25/2024 10:29:06 06/16/20 24 06/16/2024 Basic metab olic 2000 panel - Serum or Plasm a chloride [moles/volum e] in serum or plasma 108 text: 97 - 115 mmol/L CHLOR SYDNEE S/P/B 108 97 - 115 MMOL/ L 06/16 8:57 PM [facility] Not Available Not Available 08/25/2024 10:29:06 06/16/20 24 06/16/2024 Basic metab olic 2000 panel - Serum or Plasm a carbon dioxide, total [moles/volum e] in serum or plasma 29.5 text: 21 - 32 mmol/L CO2 29.5 21 - 32 MMOL/ L 06/16 8:57 PM [facility] Not Available Not Available 08/25/2024 10:29:06 06/16/20 24 06/16/2024 Basic metab olic 1999 panel - Serum or Plasm a calcium [mass/volume ] in serum or plasma 9 text: 8.5 - 10.1 mg/dL CALCI UM S/P/B 9.0 8.5 - 10.1 MG/DL 06/16 8:57 PM [facility] Not Available Not Available 08/25/2024 10:29:06 06/16/20 24 06/16/2024 Basic metab olic 2000 panel - Serum or Plasm a anion gap in serum or plasma 3.5 text: 2 - 10 mmol/L ANION GAP 3.5 2 - 10 MMOL/ L 06/16 8:57 PM [facility] Not Available Not Available 08/25/2024 10:29:06 06/16/20 24 06/16/2024 Basic metab olic 2000 panel - Serum or Plasm a urea nitrogen/cre atinine [mass ratio] in serum or plasma 16.6 low: 6high: 26 BUN CREAT ININE RATIO 16.6 6 - 26 06/16 8:57 PM [facility] Not Available Not Available 08/25/2024 10:29:06 06/16/20 24 06/16/2024 Basic metab olic 2000 panel - Serum or Plasm a glomerular filtration rate/1.73 sq M.predicted [volume rate/area] in serum, plasma or blood by creatinine-b ased formula (CKD-epi 2020) text: >90 mL/min /1.73 M2 GFR ESTIM ATE >90 >90 ML/DC N/1.7 3 M2 06/16 8:57 PM [facility] Not Available Not Available 08/25/2024 10:29:06 06/16/20 24 06/16/2024 Basic metab olic 2000 panel - Serum or Plasm a interpretati on and review of laboratory results Abnorm al Not Available Not Available 10:29:06 07/19/19 25 07/19/2024 Magne sium [Mass /volu me] in Serum or Plasm a magnesium [mass/volume ] in serum or plasma 2.1 text: 1.8 - 2.4 mg/dL MAGNE SIUM 2.1 1.8 - 2.4 MG/DL 07/19 1:19 PM [facility] Not Available Not Available 08/25/2024 10:29:06 07/19/19 25 07/19/2024 Influ madai virus A+B Ag [Pres ence] in Speci men specimen source identified NASAL SPECI MEN TYPE NASAL 07/19 10:53 AM [facility] Not Available Not Available 08/25/2024 10:29:06 07/19/19 25 07/19/2024 Influ madai virus A+B Ag [Pres ence] in Speci men influenza virus A Ag [presence] in specimen NEGATI VE text: negati ve INFLU MADAI A NEGAT TOMI NEGAT TOMI 07/19 11:15 AM [facility] Not Available Not Available 08/25/2024 10:29:06 07/19/19 25 07/19/2024 Influ madai virus A+B Ag [Pres ence] in Speci men haemophilus influenzae B Ag [presence] in specimen NEGATI VE text: negati ve INFLU MADAI B NEGAT TOMI NEGAT TOMI 07/19 11:15 AM [facility] Not Available Not Available 08/25/2024 10:29:06 07/19/19 25 07/19/2024 Compr ehens tomi metab olic 2000 panel - Serum or Plasm a glucose [mass/volume ] in serum or plasma 118 text: 70 - 99 mg/dL high GLUCO SE 118 (H) 70 - 99 MG/DL 07/19 11:56 AM [facility] Not Available Not Available 08/25/2024 10:29:06 07/19/19 25 07/19/2024 Compr ehens tomi metab olic 1999 panel - Serum or Plasm a urea nitrogen [mass/volume ] in serum or plasma 14 text: 7 - 18 mg/dL BUN 14 7 - 18 MG/DL 07/19 11:56 AM [facility] Not Available Not Available 08/25/2024 10:29:06 07/19/19 25 07/19/2024 Compr ehens tomi metab olic 2000 panel - Serum or Plasm a creatinine [mass/volume ] in serum or plasma 0.96 text: 0.55 - 1.02 mg/dL CREAT ININE S/P/B 0.96 0.55 - 1.02 MG/DL 07/19 11:56 AM [employer] [facility] Not Available Not Available 08/25/2024 10:29:06 07/19/19 25 07/19/2024 Compr ehens tomi metab olic 2000 panel - Serum or Plasm a sodium [moles/volum e] in serum or plasma 137 text: 136 - 145 mmol/L SODIU M S/P/B 137 136 - 145 MMOL/ L 07/19 11:56 AM [facility] Not Available Not Available 08/25/2024 10:29:06 07/19/19 25 07/19/2024 Compr ehens tomi metab olic 2000 panel - Serum or Plasm a potassium [moles/volum e] in serum or plasma 5.4 text: 3.5 - 5.1 mmol/L high POTAS SIUM S/P/B 5.4 (H) 3.5 - 5.1 MMOL/ L 07/19 11:56 AM [facility] Not Available Not Available 08/25/2024 10:29:06 07/19/19 25 07/19/2024 Compr ehens tomi metab olic 2000 panel - Serum or Plasm a chloride [moles/volum e] in serum or plasma 109 text: 97 - 115 mmol/L CHLOR SYDNEE S/P/B 109 97 - 115 MMOL/ L 07/19 11:56 AM [facility] Not Available Not Available 08/25/2024 10:29:06 07/19/19 25 07/19/2024 Compr ehens tomi metab olic 2000 panel - Serum or Plasm a carbon dioxide, total [moles/volum e] in serum or plasma 22.6 text: 21 - 32 mmol/L CO2 22.6 21 - 32 MMOL/ L 07/19 11:56 AM [facility] Not Available Not Available 08/25/2024 10:29:06 07/19/19 25 07/19/2024 Compr ehens tomi metab olic 2000 panel - Serum or Plasm a calcium [mass/volume ] in serum or plasma 9.1 text: 8.5 - 10.1 mg/dL CALCI UM S/P/B 9.1 8.5 - 10.1 MG/DL 07/19 11:56 AM [facility] Not Available Not Available 08/25/2024 10:29:06 07/19/19 25 07/19/2024 Compr ehens tomi metab olic 2000 panel - Serum or Plasm a bilirubin.to juana [mass/volume ] in serum or plasma 0.5 text: 0.2 - 1.2 mg/dL BILIR UBIN TOTAL S/P/B 0.5 0.2 - 1.2 MG/DL 07/19 11:56 AM [facility] Not Available Not Available 08/25/2024 10:29:06 07/19/19 25 07/19/2024 Compr ehens tomi metab olic 2000 panel - Serum or Plasm a protein [mass/volume ] in serum or plasma 8.1 text: 6.4 - 8.2 g/dL TOTAL PROTE IN S/P/B 8.1 6.4 - 8.2 G/DL 07/19 11:56 AM [facility] Not Available Not Available 08/25/2024 10:29:06 07/19/19 25 07/19/2024 Compr ehens tomi metab olic 2000 panel - Serum or Plasm a albumin [mass/volume ] in serum or plasma 3.2 text: 3.4 - 5.0 g/dL low ALBUM IN S/P/B 3.2 (L) 3.4 - 5.0 G/DL 07/19 11:56 AM [facility] Not Available Not Available 08/25/2024 10:29:06 07/19/19 25 07/19/2024 Compr ehens tomi metab olic 2000 panel - Serum or Plasm a aspartate aminotransfe rase [enzymatic activity/vol ume] in serum or plasma 47 U/L low: 15U/Lh igh: 37U/L high AST 47 (H) 15 - 37 U/L 07/19 11:56 AM [facility] Not Available Not Available 08/25/2024 10:29:06 07/19/19 25 07/19/2024 Compr ehens tomi metab olic 2000 panel - Serum or Plasm a alanine aminotransfe rase [enzymatic activity/vol ume] in serum or plasma 25 U/L low: 14U/Lh igh: 55U/L ALT 25 14 - 55 U/L 07/19 11:56 AM [facility] Not Available Not Available 08/25/2024 10:29:06 07/19/19 25 07/19/2024 Compr ehens tomi metab olic 2000 panel - Serum or Plasm a alkaline phosphatase [enzymatic activity/vol ume] in serum or plasma 134 U/L low: 50U/Lh igh: 136U/L ALKAL INE PHOSP HATAS E S/P/B 134 50 - 136 U/L 07/19 11:56 AM [facility] Not Available Not Available 08/25/2024 10:29:06 07/19/19 25 07/19/2024 Compr ehens tomi metab olic 2000 panel - Serum or Plasm a anion gap in serum or plasma 5.4 text: 2 - 10 mmol/L ANION GAP 5.4 2 - 10 MMOL/ L 07/19 11:56 AM [facility] Not Available Not Available 08/25/2024 10:29:06 07/19/19 25 07/19/2024 Compr ehens tomi metab olic 2000 panel - Serum or Plasm a urea nitrogen/cre atinine [mass ratio] in serum or plasma 14.6 low: 6high: 26 BUN CREAT ININE RATIO 14.6 6 - 26 07/19 11:56 AM [facility] Not Available Not Available 08/25/2024 10:29:06 07/19/19 25 07/19/2024 Compr ehens tomi metab olic 2000 panel - Serum or Plasm a albumin/glob ulin [mass ratio] in serum or plasma 0.7 text: 1.0 - 2.0 ratio low A/G RATIO 0.7 (L) 1.0 - 2.0 RATIO 07/19 11:56 AM [facility] Not Available Not Available 08/25/2024 10:29:06 07/19/19 25 07/19/2024 Compr ehens tomi metab olic 2000 panel - Serum or Plasm a glomerular filtration rate/1.73 sq M.predicted [volume rate/area] in serum, plasma or blood by creatinine-b ased formula (CKD-epi 2020) 66 text: >90 mL/min /1.73 M2 low GFR ESTIM ATE 66 (L) >90 ML/DC N/1.7 3 M2 07/19 11:56 AM [facility] Not Available Not Available 08/25/2024 10:29:06 07/19/19 25 07/19/2024 Compr ehens tomi metab olic 2000 panel - Serum or Plasm a interpretati on and review of laboratory results Abnorm al Not Available Not Available 10:29:06 07/19/19 25 07/19/2024 CBC W Auto Diffe renti al panel - Blood leukocytes [#/volume] in blood by automated count 9.09 text: 4.5 - 11.0 x10'3/ uL WBC 9.09 4.5 - 11.0 x10'3 /uL 07/19 11:16 AM [facility] Not Available Not Available 08/25/2024 10:29:07/19/19 25 07/19/2024 CBC W Auto Diffe renti al panel - Blood erythrocytes [#/volume] in blood by automated count 4.84 text: 4.20 - 5.40 x10'6/ uL RBC 4.84 4.20 - 5.40 x10'6 /uL 07/19 11:16 AM [facility] Not Available Not Available 08/25/2024 10:29:06 07/19/19 25 07/19/2024 CBC W Auto Diffe renti al panel - Blood hemoglobin [mass/volume ] in blood 13.9 text: 12.0 - 16.0 g/dL HGB 13.9 12.0 - 16.0 G/DL 07/19 11:16 AM [facility] Not Available Not Available 08/25/2024 10:29:07/19/1907/19/2024 CBC W Auto Diffe renti al panel - Blood hematocrit [volume fraction] of blood 46.6 % low: 38%hig h: 48% HCT 46.6 38.0 - 48.0 % 07/19 11:16 AM [facility] Not Available Not Available 08/25/2024 10:29:07/19/1907/19/2024 CBC W Auto Diffe renti al panel - Blood MCV [entitic volume] 96.3 text: 81.0 - 99.0 fL MCV 96.3 81.0 - 99.0 FL 07/19 11:16 AM [facility] Not Available Not Available 08/25/2024 10:29:07/19/19 25 07/19/2024 CBC W Auto Diffe renti al panel - Blood MCH [entitic mass] 28.7 pg low: 27pghi gh: 31pg MCH 28.7 27.0 - 31.0 PG 07/19 11:16 AM [facility] Not Available Not Available 08/25/2024 10:29:07/19/1907/19/2024 CBC W Auto Diffe renti al panel - Blood MCHC [mass/volume ] 29.8 text: 32.0 - 36.0 g/dL low MCHC 29.8 (L) 32.0 - 36.0 G/DL 07/19 11:16 AM [facility] Not Available Not Available 08/25/2024 10:29:07/19/19 25 07/19/2024 CBC W Auto Diffe renti al panel - Blood erythrocyte distribution width [entitic volume] by automated count 13.6 % low: 11.5%h igh: 14.5% RDW 13.6 11.5 - 14.5 % 07/19 11:16 AM [facility] Not Available Not Available 08/25/2024 10:29:06 07/19/19 25 07/19/2024 CBC W Auto Diffe renti al panel - Blood platelets [#/volume] in blood 253 text: 130 - 400 x10'3/ uL PLT 253 130 - 400 x10'3 /uL 07/19 11:16 AM [facility] Not Available Not Available 08/25/2024 10:29:06 07/19/1907/19/2024 CBC W Auto Diffe renti al panel - Blood platelet mean volume [entitic volume] in blood 9.8 text: 9.3 - 12.2 fL MPV 9.8 9.3 - 12.2 FL 07/19 11:16 AM [facility] Not Available Not Available 08/25/2024 10:29:06 07/19/19 25 07/19/2024 CBC W Auto Diffe renti al panel - Blood differential cell count method - blood AUTOMA KAREEN DIFFER ENTIAL DIFFE RENTI AL TYPE AUTOM ATED DIFFE RENTI AL 07/19 11:16 AM [facility] Not Available Not Available 08/25/2024 10:29:07/19/19 25 07/19/2024 CBC W Auto Diffe renti al panel - Blood neutrophils/ 100 leukocytes in blood by automated count 69.4 % NEUTR OPHIL S % 69.4 % 07/19 11:16 AM [facility] Not Available Not Available 08/25/2024 10:29:06 07/19/19 25 07/19/2024 CBC W Auto Diffe renti al panel - Blood lymphocytes/ 100 leukocytes in blood by automated count 20.9 % LYMPH OCYTE S % 20.9 % 07/19 11:16 AM [facility] Not Available Not Available 08/25/2024 10:29:06 07/19/19 25 07/19/2024 CBC W Auto Diffe renti al panel - Blood monocytes/10 0 leukocytes in blood by automated count 6.1 % MONOC YTES % 6.1 % 07/19 11:16 AM [facility] Not Available Not Available 08/25/2024 10:29:06 07/19/19 25 07/19/2024 CBC W Auto Diffe renti al panel - Blood eosinophils/ 100 leukocytes in blood by automated count 1.9 % EOSIN OPHIL S 1.9 % 07/19 11:16 AM [facility] Not Available Not Available 08/25/2024 10:29:06 07/19/19 25 07/19/2024 CBC W Auto Diffe renti al panel - Blood basophils/10 0 leukocytes in blood by automated count 0.7 % BASOP HILS 0.7 % 07/19 11:16 AM [facility] Not Available Not Available 08/25/2024 10:29:06 07/19/19 25 07/19/2024 CBC W Auto Diffe renti al panel - Blood immature granulocytes /100 leukocytes in blood by automated count 1 % IMMAT URE GRANS % 1.0 % 07/19 11:16 AM [facility] Not Available Not Available 08/25/2024 10:29:06 07/19/19 25 07/19/2024 CBC W Auto Diffe renti al panel - Blood neutrophils [#/volume] in blood 6.32 text: 1.80 - 7.70 x10'3/ uL ABS. NEUTR OPHIL S 6.32 1.80 - 7.70 x10'3 /uL 07/19 11:16 AM [facility] Not Available Not Available 08/25/2024 10:29:06 07/19/19 25 07/19/2024 CBC W Auto Diffe renti al panel - Blood lymphocytes [#/volume] in blood 1.9 text: 1.00 - 4.80 x10'3/ uL ABS. LYMPH OCYTE S 1.90 1.00 - 4.80 x10'3 /uL 07/19 11:16 AM [facility] Not Available Not Available 08/25/2024 10:29:06 07/19/19 25 07/19/2024 CBC W Auto Diffe renti al panel - Blood monocytes [#/volume] in blood 0.55 text: 0.24 - 0.86 x10'3/ uL ABS. MONOC YTES 0.55 0.24 - 0.86 x10'3 /uL 07/19 11:16 AM [facility] Not Available Not Available 08/25/2024 10:29:07/19/19 25 07/19/2024 CBC W Auto Diffe renti al panel - Blood eosinophils [#/volume] in blood 0.17 text: 0.04 - 0.36 x10'3/ uL ABS. EOSIN OPHIL S 0.17 0.04 - 0.36 x10'3 /uL 07/19 11:16 AM [facility] Not Available Not Available 08/25/2024 10:29:06 07/19/19 25 07/19/2024 CBC W Auto Diffe renti al panel - Blood basophils [#/volume] in blood 0.06 text: 0.01 - 0.08 x10'3/ uL ABS. BASOP HILS 0.06 0.01 - 0.08 x10'3 /uL 07/19 11:16 AM [facility] Not Available Not Available 08/25/2024 10:29:06 07/19/19 25 07/19/2024 CBC W Auto Diffe renti al panel - Blood immature granulocytes [#/volume] in blood 0.09 text: 0.00 - 0.49 x10'3/ uL ABS. IMMAT URE GRANU LOCYT ES 0.09 0.00 - 0.49 x10'3 /uL 07/19 11:16 AM [facility] Not Available Not Available 08/25/2024 10:29:06 07/19/19 25 07/19/2024 CBC W Auto Diffe renti al panel - Blood interpretati on and review of laboratory results Abnorm al Not Available Not Available 10:29:06 07/19/19 25 07/19/2024 Lipas e [Enzy matic activ ity/v olume ] in Serum or Plasm a lipase [enzymatic activity/vol ume] in serum or plasma 30 text: 13 - 75 units/ L LIPAS E 30 13 - 75 UNITS /L 07/19 11:56 AM [employer] [facility] Not Available Not Available 08/25/2024 10:29:06 08/11/19 25 08/11/2024 CBC W Auto Diffe renti al panel - Blood leukocytes [#/volume] in blood by automated count 9.6 text: 4.0 - 10.7 x10e9/ L WBC 9.6 4.0 - 10.7 x10E9 /L 08/11 6:34 PM [employer] Not Available Not Available 08/25/2024 03:05:32 08/11/1908/11/2024 CBC W Auto Diffe renti al panel - Blood erythrocytes [#/volume] in blood by automated count 4.86 text: 3.90 - 5.20 x10e12 /L RBC Count 4.86 3.90 - 5.20 x10E1 2/L 08/11 6:34 PM [employer] Not Available Not Available 08/25/2024 03:05:32 08/11/19 25 08/11/2024 CBC W Auto Diffe renti al panel - Blood hemoglobin [mass/volume ] in blood 14.1 g/dL low: 11.9g/ dLhigh : 15.8g/ dL Hemog lobin 14.1 11.9 - 15.8 g/dL 08/11 6:34 PM [employer] Not Available Not Available 08/25/2024 03:05:32 08/11/19 25 08/11/2024 CBC W Auto Diffe renti al panel - Blood hematocrit [volume fraction] of blood by automated count 43.3 % low: 34.8%h igh: 46.1% Hemat ocrit 43.3 34.8 - 46.1 % 08/11 6:34 PM [facility] [facility] Not Available Not Available 08/25/2024 03:05:32 08/11/19 25 08/11/2024 CBC W Auto Diffe renti al panel - Blood MCV [entitic volume] by automated count 89.1 fL low: 80fLhi gh: 98fL MCV 89.1 80.0 - 98.0 fL 08/11 6:34 PM [facility] Not Available Not Available 08/25/2024 03:05:32 08/11/19 25 08/11/2024 CBC W Auto Diffe amandati al panel - Blood MCH [entitic mass] by automated count 29 pg low: 26.7pg high: 33.6pg MCH 29.0 26.7 - 33.6 pg 08/11 6:34 PM [facility] Not Available Not Available 08/25/2024 03:05:32 08/11/19 25 08/11/2024 CBC W Auto Diffe renti al panel - Blood MCHC [mass/volume ] by automated count 32.6 g/dL low: 31.7g/ dLhigh : 36.3g/ dL MCHC 32.6 31.7 - 36.3 g/dL 08/11 6:34 PM [facility] Not Available Not Available 08/25/2024 03:05:32 08/11/19 25 08/11/2024 CBC W Auto Diffe renti al panel - Blood erythrocyte distribution width [ratio] by automated count 13.5 % low: 11.3%h igh: 14.8% RDW-C V 13.5 11.3 - 14.8 % 08/11 6:34 PM [facility] JUANA Not Available Not Available 08/25/2024 03:05:32 08/11/19 25 08/11/2024 CBC W Auto Diffe renti al panel - Blood platelets [#/volume] in blood by automated count 263 text: 150 - 420 x10e9/ L Plate let Count 263 150 - 420 x10E9 /L 08/11 6:34 PM [facility] [facility]UANA Not Available Not Available 08/25/2024 03:05:32 08/11/1908/11/2024 CBC W Auto Diffe renti al panel - Blood platelet mean volume [entitic volume] in blood by automated count 9.9 fL low: 7.8fLh igh: 11.4fL MPV 9.9 7.8 - 11.4 fL 08/11 6:34 PM [facility]UANA Not Available Not Available 08/25/2024 03:05:32 08/11/1908/11/2024 CBC W Auto Diffe renti al panel - Blood neutrophils/ 100 leukocytes in blood by automated count 81.4 % low: 41%hig h: 74% high Neutr ophil % 81.4 (H) 41.0 - 74.0 % 08/11 6:34 PM [facility]UANA Not Available Not Available 08/25/2024 03:05:32 08/11/19 25 08/11/2024 CBC W Auto Diffe renti al panel - Blood lymphocytes/ 100 leukocytes in blood by automated count 11.1 % low: 17%hig h: 47% low Lymph ocyte % 11.1 (L) 17.0 - 47.0 % 08/11 6:34 PM [facility]UANA Not Available Not Available 08/25/2024 03:05:32 08/11/19 25 08/11/2024 CBC W Auto Diffe renti al panel - Blood monocytes/10 0 leukocytes in blood by automated count 5 % low: 3%high : 11% Monoc yte % 5.0 3.0 - 11.0 % 08/11 6:34 PM [facility]UANA Not Available Not Available 08/25/2024 03:05:32 08/11/19 25 08/11/2024 CBC W Auto Diffe renti al panel - Blood eosinophils/ 100 leukocytes in blood by automated count 1.6 % low: 0%high : 7% Eosin ophil % 1.6 0.0 - 7.0 % 08/11 6:34 PM [facility] JUANA Not Available Not Available 08/25/2024 03:05:32 08/11/1908/11/2024 CBC W Auto Diffe renti al panel - Blood basophils/10 0 leukocytes in blood by automated count 0.3 % low: 0%high : 1.6% Basop hil % 0.3 0.0 - 1.6 % 08/11 6:34 PM [facility] JUANA Not Available Not Available 08/25/2024 03:05:32 08/11/19 25 08/11/2024 CBC W Auto Diffe renti al panel - Blood immature granulocytes /100 leukocytes in blood by automated count 0.6 % low: 0%high : 1% Immat ure Granu locyt es % 0.6 0.0 - 1.0 % 08/11 6:34 PM [facility] JUANA Not Available Not Available 08/25/2024 03:05:32 08/11/1908/11/2024 CBC W Auto Diffe renti al panel - Blood neutrophils [#/volume] in blood by automated count 7.82 text: 1.60 - 7.50 x10e9/ L high Neutr ophil Absol [place] 7.82 (H) 1.60 - 7.50 x10E9 /L 08/11 6:34 PM [facility] JUANA Not Available Not Available 08/25/2024 03:05:32 08/11/1908/11/2024 CBC W Auto Diffe renti al panel - Blood lymphocytes [#/volume] in blood by automated count 1.07 text: 1.00 - 4.40 x10e9/ L Lymph ocyte Absol [place] 1.07 1.00 - 4.40 x10E9 /L 08/11 6:34 PM [facility] JUANA Not Available Not Available 08/25/2024 03:05:32 08/11/19 25 08/11/2024 CBC W Auto Diffe renti al panel - Blood monocytes [#/volume] in blood by automated count 0.48 text: 0.15 - 1.00 x10e9/ L Monoc yte Absol [place] 0.48 0.15 - 1.00 x10E9 /L 08/11 6:34 PM [facility] JUANA Not Available Not Available 08/25/2024 03:05:32 08/11/19 25 08/11/2024 CBC W Auto Diffe renti al panel - Blood eosinophils [#/volume] in blood 0.15 text: 0.00 - 0.60 x10e9/ L Eosin ophil Absol [place] 0.15 0.00 - 0.60 x10E9 /L 08/11 6:34 PM [facility] JUANA Not Available Not Available 08/25/2024 03:05:32 08/11/1908/11/2024 CBC W Auto Diffe renti al panel - Blood basophils [#/volume] in blood by automated count 0.03 text: 0.00 - 0.13 x10e9/ L Basop hil Absol [place] 0.03 0.00 - 0.13 x10E9 /L 08/11 6:34 PM [facility] JAUNA Not Available Not Available 08/25/2024 03:05:32 08/11/1908/11/2024 CBC W Auto Diffe renti al panel - Blood interpretati on and review of laboratory results Abnorm al Not Available Not Available 03:05:32 08/11/19 25 08/11/2024 Compr ehens tomi metab olic 1999 panel - Serum or Plasm a urea nitrogen [mass/volume ] in serum or plasma 11 mg/dL low: 7mg/dL high: 26mg/d L BUN 11 7 - 26 mg/dL 08/11 6:53 PM [facility] JUANA Not Available Not Available 08/25/2024 03:05:32 08/11/19 25 08/11/2024 Compr ehens tomi metab olic 1999 panel - Serum or Plasm a creatinine [mass/volume ] in serum or plasma 0.68 mg/dL low: 0.56mg /dLhig h: 0.96mg /dL Creat inine 0.68 0.56 - 0.96 mg/dL 08/11 6:53 PM [facility] JUANA Not Available Not Available 08/25/2024 03:05:32 08/11/19 25 08/11/2024 Compr ehens tomi metab olic 1999 panel - Serum or Plasm a sodium [moles/volum e] in serum or plasma 139 mmol/ L low: 136mmo l/Lhig h: 145mmo l/L Sodiu m 139 136 - 145 mmol/ L 08/11 6:53 PM [facility] JUANA Not Available Not Available 08/25/2024 03:05:32 08/11/19 25 08/11/2024 Compr ehens tomi metab olic 2000 panel - Serum or Plasm a potassium [moles/volum e] in serum or plasma 4.2 mmol/ L low: 3.5mmo l/Lhig h: 4.5mmo l/L Potas sium 4.2 3.5 - 4.5 mmol/ L 08/11 6:53 PM [facility] [facility] JUANA Not Available Not Available 08/25/2024 03:05:32 08/11/1908/11/2024 Compr ehens tomi metab olic 1999 panel - Serum or Plasm a chloride [moles/volum e] in serum or plasma 105 mmol/ L low: 98mmol /Lhigh : 107mmo l/L Chlor sydnee 105 98 - 107 mmol/ L 08/11 6:53 PM [facility] JUANA Not Available Not Available 08/25/2024 03:05:32 08/11/19 25 08/11/2024 Compr ehens tomi metab olic 2000 panel - Serum or Plasm a carbon dioxide, total [moles/volum e] in serum or plasma 25 mmol/ L low: 22mmol /Lhigh : 29mmol /L CO2 25 22 - 29 mmol/ L 08/11 6:53 PM [facility] JUANA Not Available Not Available 08/25/2024 03:05:32 08/11/19 25 08/11/2024 Compr ehens tomi metab olic 2000 panel - Serum or Plasm a glucose [mass/volume ] in serum or plasma 109 mg/dL low: 70mg/d Lhigh: 99mg/d L high Gluco se 109 (H) 70 - 99 mg/dL 08/11 6:53 PM [facility] JUANA Not Available Not Available 08/25/2024 03:05:32 08/11/19 25 08/11/2024 Compr VHXens tomi metab olic 2000 panel - Serum or Plasm a calcium [moles/volum e] in serum or plasma 8.6 mg/dL low: 8.4mg/ dLhigh : 10.2mg /dL Calci um 8.6 8.4 - 10.2 mg/dL 08/11 6:53 PM [facility] JUANA Not Available Not Available 08/25/2024 03:05:32 08/11/19 25 08/11/2024 Compr VHXens tomi metab olic 2000 panel - Serum or Plasm a protein [mass/volume ] in serum or plasma 7.6 g/dL low: 6g/dLh igh: 8.3g/d L Prote in Total 7.6 6.0 - 8.3 g/dL 08/11 6:53 PM [facility] [facility] JUANA Not Available Not Available 08/25/2024 03:05:32 08/11/1908/11/2024 Compr Immediately tomi metab olic 2000 panel - Serum or Plasm a albumin [mass/volume ] in serum or plasma by bromocresol green (bcg) dye binding method 3.6 g/dL low: 3.4g/d Lhigh: 5g/dL Album in 3.6 3.4 - 5.0 g/dL 08/11 6:53 PM [facility] JUANA Not Available Not Available 08/25/2024 03:05:32 08/11/19 25 08/11/2024 Compr VHXens tomi metab olic 2000 panel - Serum or Plasm a bilirubin.to juana [mass/volume ] in serum or plasma 0.4 mg/dL low: 0.2mg/ dLhigh : 1.2mg/ dL Bilir ubin Total 0.4 0.2 - 1.2 mg/dL 08/11 6:53 PM [facility] JUANA Not Available Not Available 08/25/2024 03:05:32 08/11/19 25 08/11/2024 Compr ehens tomi metab olic 1999 panel - Serum or Plasm a alkaline phosphatase [enzymatic activity/vol ume] in serum or plasma 121 U/L low: 40U/Lh igh: 150U/L Alkal ine Phosp hatas e 121 40 - 150 U/L 08/11 6:53 PM [facility]UANA Not Available Not Available 08/25/2024 03:05:32 08/11/19 25 08/11/2024 Compr ehens tomi metab olic 1999 panel - Serum or Plasm a alanine aminotransfe rase [enzymatic activity/vol ume] in serum or plasma by no addition of P-5'-P 12 U/L low: 5U/Lhi gh: 55U/L ALT 12 5 - 55 U/L 08/11 6:53 PM [facility] JUANA Not Available Not Available 08/25/2024 03:05:32 08/11/19 25 08/11/2024 Compr ehens tomi metab olic 1999 panel - Serum or Plasm a aspartate aminotransfe rase [enzymatic activity/vol ume] in serum or plasma 15 U/L low: 5U/Lhi gh: 34U/L AST 15 5 - 34 U/L 08/11 6:53 PM [facility] JUANA Not Available Not Available 08/25/2024 03:05:32 08/11/19 25 08/11/2024 Compr ehens tomi metab olic 1999 panel - Serum or Plasm a anion gap 9 low: 6high: 16 Anion Gap 9 6 - 16 08/11 6:53 PM [facility] [facility] JUANA Not Available Not Available 08/25/2024 03:05:32 08/11/19 25 08/11/2024 Compr ehens tomi metab olic 2000 panel - Serum or Plasm a urea nitrogen/cre atinine [mass ratio] in serum or plasma 16 low: 7high: 23 BUN/C reati nine Ratio 16 7 - 23 08/11 6:53 PM [facility] JUANA Not Available Not Available 08/25/2024 03:05:32 02/04/20 25 08/11/2024 Compr ehens tomi metab olic 2000 panel - Serum or Plasm a osmolality calculated 288 text: 275 - 295 mOsm/k g Osmol elis Maria lated 288 275 - 295 mOsm/ kg 08/11 6:53 PM [facility] Not Available Not Available 08/25/2024 03:05:32 08/11/19 25 08/11/2024 Compr ehens tomi metab olic 2000 panel - Serum or Plasm a albumin/glob ulin ratio 0.9 low: 1.1hig h: 2.3 low Album in/Gl obuli n Ratio 0.9 (L) 1.1 - 2.3 08/11 6:53 PM [facility] JUNAA Not Available Not Available 08/25/2024 03:05:32 08/11/19 25 08/11/2024 Compr ehens tomi metab olic 2000 panel - Serum or Plasm a glomerular filtration rate/1.73 sq M.predicted [volume rate/area] in serum, plasma or blood by creatinine-b ased formula (CKD-epi 2020) text: >=90 mL/min /1.73 m2 eGFR by CKD-E PI >90 >=90 mL/mi n/1.7 3 m2 08/11 6:53 PM [facility]UANA Not Available Not Available 08/25/2024 03:05:32 08/11/19 25 08/11/2024 Compr ehens tomi metab olic 2000 panel - Serum or Plasm a interpretati on and review of laboratory results Abnorm al Not Available Not Available 03:05:32 08/11/19 25 08/11/2024 Magne sium [Mass /volu me] in Serum or Plasm a magnesium [mass/volume ] in serum or plasma 1.9 mg/dL low: 1.6mg/ dLhigh : 2.6mg/ dL Magne sium 1.9 1.6 - 2.6 mg/dL 08/11 6:53 PM [facility]UANA Not Available Not Available 08/25/2024 03:05:32 08/11/19 25 08/11/2024 Magne sium [Mass /volu me] in Serum or Plasm a interpretati on and review of laboratory results Normal Not Available Not Available 08/08 03:05:32 09/11/1909/10/2024 Compr ehens tomi metab olic 1999 panel - Serum or Plasm a glucose [mass/volume ] in serum or plasma 107 text: 70 - 99 mg/dL high GLUCO SE 107 (H) 70 - 99 MG/DL 09/10 2:27 PM [employer] Not Available Not Available 09/11/2024 14:54:53 09/11/19 25 09/10/2024 Compr ehens tomi metab olic 1999 panel - Serum or Plasm a urea nitrogen [mass/volume ] in serum or plasma 12 text: 7 - 18 mg/dL BUN 12 7 - 18 MG/DL 09/10 2:27 PM [facility] Not Available Not Available 09/11/2024 14:54:53 09/11/19 25 09/10/2024 Compr ehens tomi metab olic 1999 panel - Serum or Plasm a creatinine [mass/volume ] in serum or plasma 0.71 text: 0.55 - 1.02 mg/dL CREAT ININE S/P/B 0.71 0.55 - 1.02 MG/DL 09/10 2:27 PM [facility] Not Available Not Available 09/11/2024 14:54:53 09/11/19 25 09/10/2024 Compr ehens tmoi metab olic 2000 panel - Serum or Plasm a sodium [moles/volum e] in serum or plasma 137 text: 136 - 145 mmol/L SODIU M S/P/B 137 136 - 145 MMOL/ L 09/10 2:27 PM [employer] [facility] Not Available Not Available 09/11/2024 14:54:53 09/11/19 25 09/10/2024 Compr ehens tomi metab olic 2000 panel - Serum or Plasm a potassium [moles/volum e] in serum or plasma 3.8 text: 3.5 - 5.1 mmol/L POTAS SIUM S/P/B 3.8 3.5 - 5.1 MMOL/ L 09/10 2:27 PM [facility] Not Available Not Available 09/11/2024 14:54:53 09/11/19 25 09/10/2024 Compr ehens tomi metab olic 2000 panel - Serum or Plasm a chloride [moles/volum e] in serum or plasma 105 text: 97 - 115 mmol/L CHLOR SYDNEE S/P/B 105 97 - 115 MMOL/ L 09/10 2:27 PM [facility] Not Available Not Available 09/11/2024 14:54:53 09/11/19 25 09/10/2024 Compr ehens tomi metab olic 2000 panel - Serum or Plasm a carbon dioxide, total [moles/volum e] in serum or plasma 24 text: 21 - 32 mmol/L CO2 24.0 21 - 32 MMOL/ L 09/10 2:27 PM [facility] Not Available Not Available 09/11/2024 14:54:53 09/11/19 25 09/10/2024 Compr ehens tomi metab olic 2000 panel - Serum or Plasm a calcium [mass/volume ] in serum or plasma 9.2 text: 8.5 - 10.1 mg/dL CALCI UM S/P/B 9.2 8.5 - 10.1 MG/DL 09/10 2:27 PM [facility] Not Available Not Available 09/11/2024 14:54:53 09/11/19 25 09/10/2024 Compr ehens tomi metab olic 2000 panel - Serum or Plasm a bilirubin.to juana [mass/volume ] in serum or plasma 0.4 text: 0.2 - 1.2 mg/dL BILIR UBIN TOTAL S/P/B 0.4 0.2 - 1.2 MG/DL 09/10 2:27 PM [facility] Not Available Not Available 09/11/2024 14:54:53 09/11/19 25 09/10/2024 Compr ehens tomi metab olic 1999 panel - Serum or Plasm a protein [mass/volume ] in serum or plasma 7.8 text: 6.4 - 8.2 g/dL TOTAL PROTE IN S/P/B 7.8 6.4 - 8.2 G/DL 09/10 2:27 PM [employer] [facility] Not Available Not Available 09/11/2024 14:54:53 09/11/19 25 09/10/2024 Compr ehens tomi metab olic 1999 panel - Serum or Plasm a albumin [mass/volume ] in serum or plasma 3.3 text: 3.4 - 5.0 g/dL low ALBUM IN S/P/B 3.3 (L) 3.4 - 5.0 G/DL 09/10 2:27 PM [employer] Not Available Not Available 09/11/2024 14:54:53 09/11/19 25 09/10/2024 Compr ehens tomi metab olic 1999 panel - Serum or Plasm a aspartate aminotransfe rase [enzymatic activity/vol ume] in serum or plasma 18 U/L low: 15U/Lh igh: 37U/L AST 18 15 - 37 U/L 09/10 2:27 PM [employer] Not Available Not Available 09/11/2024 14:54:53 09/11/19 25 09/10/2024 Compr ehens tomi metab olic 2000 panel - Serum or Plasm a alanine aminotransfe rase [enzymatic activity/vol ume] in serum or plasma 23 U/L low: 14U/Lh igh: 55U/L ALT 23 14 - 55 U/L 09/10 2:27 PM [employer] Not Available Not Available 09/11/2024 14:54:53 09/11/19 25 09/10/2024 Compr ehens tomi metab olic 2000 panel - Serum or Plasm a alkaline phosphatase [enzymatic activity/vol ume] in serum or plasma 134 U/L low: 50U/Lh igh: 136U/L ALKAL INE PHOSP HATAS E S/P/B 134 50 - 136 U/L 09/10 2:27 PM [facility] Not Available Not Available 09/11/2024 14:54:53 09/11/19 25 09/10/2024 Compr ehens tomi metab olic 2000 panel - Serum or Plasm a anion gap in serum or plasma 8 text: 2 - 10 mmol/L ANION GAP 8.0 2 - 10 MMOL/ L 09/10 2:27 PM [employer] Not Available Not Available 09/11/2024 14:54:53 09/11/19 25 09/10/2024 Compr ehens tomi metab olic 2000 panel - Serum or Plasm a urea nitrogen/cre atinine [mass ratio] in serum or plasma 16.9 low: 6high: 26 BUN CREAT ININE RATIO 16.9 6 - 26 09/10 2:27 PM [facility] Not Available Not Available 09/11/2024 14:54:53 09/11/19 25 09/10/2024 Compr ehens tomi metab olic 2000 panel - Serum or Plasm a albumin/glob ulin [mass ratio] in serum or plasma 0.7 text: 1.0 - 2.0 ratio low A/G RATIO 0.7 (L) 1.0 - 2.0 RATIO 09/10 2:27 PM [facility] Not Available Not Available 09/11/2024 14:54:53 09/11/19 25 09/10/2024 Compr ehens tomi metab olic 2000 panel - Serum or Plasm a glomerular filtration rate/1.73 sq M.predicted [volume rate/area] in serum, plasma or blood by creatinine-b ased formula (CKD-epi 2020) >90 text: >90 mL/min /1.73 M2 GFR ESTIM ATE >90 >90 ML/DC N/1.7 3 M2 09/10 2:27 PM [facility] Not Available Not Available 09/11/2024 14:54:53 09/11/19 25 09/10/2024 Compr ehens tomi metab olic 2000 panel - Serum or Plasm a interpretati on and review of laboratory results Abnorm al Not Available Not Available 14:54:53 09/11/19 25 09/10/2024 CBC W Auto Diffe renti al panel - Blood leukocytes [#/volume] in blood by automated count 11.27 text: 4.5 - 11.0 x10'3/ uL high WBC 11.27 (H) 4.5 - 11.0 x10'3 /uL 09/10 1:57 PM [employer] Not Available Not Available 09/11/2024 14:54:53 09/11/19 25 09/10/2024 CBC W Auto Diffe renti al panel - Blood erythrocytes [#/volume] in blood by automated count 4.67 text: 4.20 - 5.40 x10'6/ uL RBC 4.67 4.20 - 5.40 x10'6 /uL 09/10 1:57 PM [employer] Not Available Not Available 09/11/2024 14:54:53 09/11/19 25 09/10/2024 CBC W Auto Diffe renti al panel - Blood hemoglobin [mass/volume ] in blood 13.5 text: 12.0 - 16.0 g/dL HGB 13.5 12.0 - 16.0 G/DL 09/10 1:57 PM [employer] Not Available Not Available 09/11/2024 14:54:53 09/11/19 25 09/10/2024 CBC W Auto Diffe renti al panel - Blood hematocrit [volume fraction] of blood 41.6 % low: 38%hig h: 48% HCT 41.6 38.0 - 48.0 % 09/10 1:57 PM [employer] Not Available Not Available 09/11/2024 14:54:53 09/11/19 25 09/10/2024 CBC W Auto Diffe renti al panel - Blood MCV [entitic volume] 89.1 text: 81.0 - 99.0 fL MCV 89.1 81.0 - 99.0 FL 09/10 1:57 PM [employer] Not Available Not Available 09/11/2024 14:54:53 09/11/19 25 09/10/2024 CBC W Auto Diffe renti al panel - Blood MCH [entitic mass] 28.9 pg low: 27pghi gh: 31pg MCH 28.9 27.0 - 31.0 PG 09/10 1:57 PM [employer] Not Available Not Available 09/11/2024 14:54:53 09/11/19 25 09/10/2024 CBC W Auto Diffe renti al panel - Blood MCHC [mass/volume ] 32.5 text: 32.0 - 36.0 g/dL MCHC 32.5 32.0 - 36.0 G/DL 09/10 1:57 PM [employer] Not Available Not Available 09/11/2024 14:54:53 09/11/19 25 09/10/2024 CBC W Auto Diffe renti al panel - Blood erythrocyte distribution width [entitic volume] by automated count 13.3 % low: 11.5%h igh: 14.5% RDW 13.3 11.5 - 14.5 % 09/10 1:57 PM [employer] Not Available Not Available 09/11/2024 14:54:53 09/11/19 25 09/10/2024 CBC W Auto Diffe renti al panel - Blood platelets [#/volume] in blood 339 text: 130 - 400 x10'3/ uL PLT 339 130 - 400 x10'3 /uL 09/10 1:57 PM [employer] Not Available Not Available 09/11/2024 14:54:53 09/11/19 25 09/10/2024 CBC W Auto Diffe renti al panel - Blood platelet mean volume [entitic volume] in blood 9.5 text: 9.3 - 12.2 fL MPV 9.5 9.3 - 12.2 FL 09/10 1:57 PM [employer] Not Available Not Available 09/11/2024 14:54:53 09/11/19 25 09/10/2024 CBC W Auto Diffe renti al panel - Blood differential cell count method - blood AUTOMA KAREEN DIFFER ENTIAL DIFFE RENTI AL TYPE AUTOM ATED DIFFE RENTI AL 09/10 1:57 PM [employer] Not Available Not Available 09/11/2024 14:54:53 09/11/19 25 09/10/2024 CBC W Auto Diffe renti al panel - Blood neutrophils/ 100 leukocytes in blood by automated count 74 % NEUTR OPHIL S % 74.0 % 09/10 1:57 PM [facility] Not Available Not Available 09/11/2024 14:54:53 09/11/19 25 09/10/2024 CBC W Auto Diffe renti al panel - Blood lymphocytes/ 100 leukocytes in blood by automated count 17.6 % LYMPH OCYTE S % 17.6 % 09/10 1:57 PM [employer] Not Available Not Available 09/11/2024 14:54:53 09/11/19 25 09/10/2024 CBC W Auto Diffe renti al panel - Blood monocytes/10 0 leukocytes in blood by automated count 5.9 % MONOC YTES % 5.9 % 09/10 1:57 PM [employer] Not Available Not Available 09/11/2024 14:54:53 09/11/19 25 09/10/2024 CBC W Auto Diffe renti al panel - Blood eosinophils/ 100 leukocytes in blood by automated count 1.5 % EOSIN OPHIL S 1.5 % 09/10 1:57 PM [employer] Not Available Not Available 09/11/2024 14:54:53 09/11/19 25 09/10/2024 CBC W Auto Diffe renti al panel - Blood basophils/10 0 leukocytes in blood by automated count 0.4 % BASOP HILS 0.4 % 09/10 1:57 PM [employer] Not Available Not Available 09/11/2024 14:54:53 09/11/19 25 09/10/2024 CBC W Auto Diffe renti al panel - Blood immature granulocytes /100 leukocytes in blood by automated count 0.6 % IMMAT URE GRANS % 0.6 % 09/10 1:57 PM [employer] Not Available Not Available 09/11/2024 14:54:53 09/11/19 25 09/10/2024 CBC W Auto Diffe renti al panel - Blood neutrophils [#/volume] in blood 8.34 text: 1.80 - 7.70 x10'3/ uL high ABS. NEUTR OPHIL S 8.34 (H) 1.80 - 7.70 x10'3 /uL 09/10 1:57 PM [employer] Not Available Not Available 09/11/2024 14:54:53 09/11/19 25 09/10/2024 CBC W Auto Diffe renti al panel - Blood lymphocytes [#/volume] in blood 1.98 text: 1.00 - 4.80 x10'3/ uL ABS. LYMPH OCYTE S 1.98 1.00 - 4.80 x10'3 /uL 09/10 1:57 PM [employer] [facility] Not Available Not Available 09/11/2024 14:54:53 09/11/19 25 09/10/2024 CBC W Auto Diffe renti al panel - Blood monocytes [#/volume] in blood 0.66 text: 0.24 - 0.86 x10'3/ uL ABS. MONOC YTES 0.66 0.24 - 0.86 x10'3 /uL 09/10 1:57 PM [employer] [facility] Not Available Not Available 09/11/2024 14:54:53 09/11/19 25 09/10/2024 CBC W Auto Diffe renti al panel - Blood eosinophils [#/volume] in blood 0.17 text: 0.04 - 0.36 x10'3/ uL ABS. EOSIN OPHIL S 0.17 0.04 - 0.36 x10'3 /uL 09/10 1:57 PM [employer] [facility] Not Available Not Available 09/11/2024 14:54:53 09/11/19 25 09/10/2024 CBC W Auto Diffe renti al panel - Blood basophils [#/volume] in blood 0.05 text: 0.01 - 0.08 x10'3/ uL ABS. BASOP HILS 0.05 0.01 - 0.08 x10'3 /uL 09/10 1:57 PM [employer] [facility] Not Available Not Available 09/11/2024 14:54:53 09/11/19 25 09/10/2024 CBC W Auto Diffe renti al panel - Blood immature granulocytes [#/volume] in blood 0.07 text: 0.00 - 0.49 x10'3/ uL ABS. IMMAT URE GRANU LOCYT ES 0.07 0.00 - 0.49 x10'3 /uL 09/10 1:57 PM [employer] [facility] Not Available Not Available 09/11/2024 14:54:53 09/11/19 25 09/10/2024 CBC W Auto Diffe renti al panel - Blood interpretati on and review of laboratory results Abnorm al Not Available Not Available 14:54:53 09/11/19 25 09/10/2024 Creat ine kinas e [Enzy matic activ ity/v olume ] in Serum or Plasm a creatine kinase [enzymatic activity/vol ume] in serum or plasma 38 U/L low: 21U/Lh igh: 215U/L CPK 38 21 - 215 U/L 09/10 2:26 PM [employer] [facility] Not Available Not Available 09/11/2024 14:54:53 07/24/19 elect rocar diogr am No observ ation record ed. KIARA In-Office Order Internal Use Only DO Not Attach Compendium DO Not Attach Compendium, Do Not Delete/merge, [id number] 07/24/2024 13:25:48 07/24/19 25 07/24/2024 elect rocar diogr am No observ ation record ed. BARCODE In-Office Order Internal Use Only DO Not Attach Compendium DO Not Attach Compendium, Do Not Delete/merge, [id number] 07/24/2024 17:40:00 09/26/1909/23/2024 casey can cardi olite stres s test (PROC ) No observ ation record ed. [address], [address], 09/30/2024 10:23:41 09/26/19 , echo ardio gram No observ ation record ed. [facility] [address] [place], [address], 09/30/2024 10:23:41 Result Notes None recorded. Problems Name Problem SNOMED Code Status Onset Date Resolution Date Notes Provider Name and Address Organization Details Recorded Time Anxiety hyperven tilation 79493228 Active Not Available Pending sale to [facility] 4 09:31:03 Non-card iac chest pain 020770375 Active Not Available Pending sale to [facility] 4 09:31:03 Chronic obstruct tomi pulmonar y disease 50482872 Active Not Available [facility] 4 09:31:03 Tobacco dependen ce syndrome 76865085 Completed 03/26/2022 Removal Reason: She said that she nerve smoked. 03-26-20. Huma Richard MD Attn: Accounting ,[address] [place], [address] , [place] - [facility] 2 15:05:18 Acute left otitis media 506442408 Active Not Available Pending sale to [facility] 4 09:31:03 Perforat ion of tympanic membrane 41597886 Active Not Available [facility] 4 09:31:03 Low back pain 748035047 Active 2023 Amanda Cardenas MA null, [place] - [facility] 4 13:03:03 Fatigue 62420032 Active 2023 Amanda Cardenas [place] null, [place] [facility] 4 13:03:04 Abdomina l pain 70518958 Active 2023 Amanda Cardenas [place] null, [place] [facility] 4 10:58:06 Dyslipid emia 875883466 Active 2023 Eli Plascencia MD Attn: Accounting ,[address] [place], [address] , [place] [facility] 4 13:28:32 Divertic ulitis 163531415 Active 2023 Amanda Cardenas [place] null, [place] [facility] 4 11:48:27 Prediabe jorge alberto 793428577 Active 2023 A1c 6.4% [facility] January 25, 2024 Eli Plascencia MD Attn: Accounting ,[address] [place], [address] , [place] - [facility] 4 13:25:23 Gastroes ophageal reflux disease without esophagi tis 463974834 Active 2023 Amanda Cardenas [place] null, [place] [facility] 4 12:03:09 Dyspnea on exertion 24026425 Active 2024 Amanda Cardenas [place] null, [place] [facility] 5 11:54:21 Acute bronchit is 41192157 Active Not Available [facility] 4 09:31:03 Chest wall pain 150080302 Active Not Available [facility] 4 09:31:03 Vertigo 666688159 Active Not Available [facility] 4 09:31:03 Problem Notes None recorded. Procedures Surgical History Date Name Laterality Status Provider Name and Address Organization Details Recorded Time 10/09/19 24 Routine Foot Care completed ADIN THOUVENOT, DPM [address], [place], [address], [place] [facility] 10/09/2023 12:46:17 05/17/20 Routine Foot Care completed Yaya Allen DPM [address], [place], [address], [place] [facility] 05/17/2022 11:28:35 02/14/20 22 Routine Foot Care completed Dumfries Allen DPM [address], [place], [address], [place] [facility] 02/20/2022 15:24:00 03/08/20 20 Routine Foot Care completed Dumfries Allen DPM [address], [place], [address], [place] [facility] 03/08/2020 10:50:29 07/08/19 18 Cholecystectomy completed Leigh Ann Hope LPN [place] - [facility] 12/23/2019 10:17:48 Imaging Results Imaging Date Name Status LastModified by Organization Details LastModified Time 07/24/2024 electrocardiogram completed [facility] Order Internal Use Only DO Not Attach Compendium DO Not Attach Compendium, Do Not Delete/merge, [id number] 07/24/2024 13:25:48 07/24/2024 electrocardiogram completed [facility] In-Offi ce Order Internal Use Only DO Not Attach Compendium DO Not Attach Compendium, Do Not Delete/merge, [id number] 07/24/2024 17:40:00 09/23/2024 lexiscan cardiolite stress test (PROC) completed [address], [address], 09/30/2024 10:23:41 09/25/2024 , echocardiogram completed [address], [address], 09/30/2024 10:23:41 Procedure Notes None recorded. Medical Equipment None Reported. Allergies Allergen ID Allergen Name Allergen Category Reaction Reaction Severity Criticality Documentation Date Start Date Code Code System Note Provider Name and Address Organization Details Recorded Time 342788 Bactrim medicatio n lighthead edness severe Not available 11/27/2019 72468 9 RxNorm Frederick Ravi MA [facility], [place] - [facility] 0 11:40:25 Medications Name Sig Start Date Stop Date Status Note LastModified by Organization Details LastModified Time smz/tmp ds tab 800-160 12/22 completed Not Available Not Available Not Available Prescripti on - Renewal 09/05 completed Not Available Not Available Not Available albuterol sulfate hfa 108 mcg/act aers 12/21 completed Not Available Not Available Not Available Prescripti on - New 09/05 completed Not Available Not Available Not Available symbicort aer 160-4.5 12/22 completed Not Available Not Available Not Available proair hfa 108 mcg/act aers 12/22 completed Not Available Not Available Not Available clindamyci n hcl 150 mg caps 12/22 completed Not Available Not Available Not Available losartan 50 mg tablet TAKE 1 TABLET BY MOUTH EVERY DAY DIRECTED 05/15 completed Not Available Not Available Not Available cyclobenza carine 10 mg tablet Take 1 tablet as needed by oral route at bedtime for 30 days. 04/06 completed Not Available Not Available Not Available amoxicilli n 500 mg capsule TAKE 1 CAPSULE BY MOUTH TWICE DAILY AFTER MEALS FOR 5 DAYS 10/30 completed Not Available Not Available Not Available neomycin-p olymyxin-h ydrocort 3.5 mg/mL-10,0 00 unit/mL-1 % ear solution INSTILL 3 DROPS TO AFFECTED EAR FOUR TIMES DAILY FOR 10 DAYS 10/07 completed Not Available Not Available Not Available atorvastat in 20 mg tablet TAKE ONE TABLET BY MOUTH EVERY DAY AT dinner TO LOWER CHOLESTER OL 10/17 completed Not Available Not Available Not Available tizanidine 2 mg tablet TAKE 1 TABLET BY MOUTH EVERY 6 HOURS NEEDED 03/13 completed Not Available Not Available Not Available clindamyci n HCl 300 mg capsule 04/06 completed Not Available Not Available Not Available albuterol sulfate 2.5 mg/3 mL (0.083 %) solution for nebulizati on 09/20 completed Not Available Not Available Not Available cetirizine 10 mg tablet TAKE 1 TABLET BY MOUTH DAILY 10/07 completed Not Available Not Available Not Available atorvastat in 10 mg tablet TAKE 1 TABLET BY MOUTH EVERY DAY AT BEDTIME active Not Available Not Available No t Available azithromyc in 250 mg tablet TAKE 2 TABLETS (500 MG) BY ORAL ROUTE ONCE DAILY FOR 1 DAY THEN 1 TABLET (250 MG) BY ORAL ROUTE ONCE DAILY FOR 4 DAYS after meal. 08/16 completed Not Available Not Available Not Available benzonatat e 200 mg capsule Take 1 capsule 3 times a day by oral route as needed for 10 days. 10/07 completed Not Available Not Available Not Available hydrocodon e 5 mg-acetami nophen 325 mg tablet TAKE 1 TABLET BY MOUTH EVERY 6 HOURS NEEDED FOR PAIN FOR UP TO 12 DOSES 05/15 completed Not Available Not Available Not Available urea 40 % topical cream APPLY TO THE AFFECTED AREA(S) of heels BY TOPICAL ROUTE 2 TIMES PER DAY 02/10 completed Not Available Not Available Not Available promethazi ne 6.25 mg/5 mL oral syrup TAKE TWO TEASPOONF UL (10ML) TWICE DAILY NEEDED 10/07 completed Not Available Not Available Not Available meloxicam 15 mg tablet TAKE 1 TABLET BY MOUTH EVERY DAY 03/[address] plascencia took her off of it. Not Available Not Available Not Available Medrol (Hugo) 4 mg tablets in a dose pack Take 1 dose pk by oral route as directed. 2024 active Not Available Not Available Not Avai lable prednisone 20 mg tablet 10/07 completed Not Available Not Available Not Available lidocaine 4 % topical cream Apply 1 applicati on 4 times a day by topical route as directed for 30 days. 05/15 completed Not Available Not Available Not Available clobetasol 0.05 % topical cream APPLY A THIN LAYER TO THE AFFECTED AREA TWICE DAILY FOR 2 WEEKS 10/07 completed Not Available Not Available Not Available clindamyci n HCl 150 mg capsule Take 1 capsule every 6 hours by oral route after meals for 10 days. 12/22 completed Not Available Not Available Not Available meclizine 12.5 mg tablet Take 1 tablet 3 times a day by oral route as needed for 30 days. 10/30 completed Not Available Not Available Not Available metronidaz ole 500 mg tablet TAKE 1 TABLET BY MOUTH THREE TIMES DAILY FOR 7 DAYS 05/27 completed Not Available Not Available Not Available ciprofloxa mehdi 250 mg tablet TAKE 1 TABLET BY MOUTH TWICE DAILY AFTER MEALS FOR 5 DAYS 10/30 completed Not Available Not Available Not Available ciprofloxa mehdi 500 mg tablet Take 1 tablet twice a day by oral route for 7 days. 05/27 completed Not Available Not Available Not Available peg-electr olyte solution 420 gram oral solution MIX AND DRINK 1/2 ON EVENING OF 05/05 THEN 1/2 ON MORNING OF 05/06 completed Not Available Not Available Not Available doxycyclin e monohydrat e 100 mg tablet 03/12 completed Not Available Not Available Not Available ondansetro n 8 mg disintegra ting tablet 03/13 completed Not Available Not Available Not Available ketorolac 10 mg tablet Take 1 tablet every 6 hours by oral route as needed for 5 days. 12/21 completed Not Available Not Available Not Available ciclopirox 8 % topical solution 04/06 completed Not Available Not Available Not Available oxycodone- acetaminop hen 5 mg-325 mg tablet 10/30 completed Not Available Not Available Not Available ofloxacin 0.3 % ear drops 06/28 completed Not Available Not Available Not Available amoxicilli n 875 mg tablet 10/07 completed Not Available Not Available Not Available famotidine 20 mg tablet TAKE 1 TABLET BY MOUTH EVERY DAY active Not Available Not Available No t Available trazodone 100 mg tablet Take 1 tablet as needed by oral route at bedtime for 30 days. 10/30 completed Not Available Not Available Not Available meclizine 25 mg tablet Take 1 tablet 3 times a day by oral route as needed for 30 days. 02/10 completed Not Available Not Available Not Available baclofen 10 mg tablet TAKE 1 TABLET BY MOUTH THREE TIMES DAILY NEEDED 12/21 completed Not Available Not Available Not Available benzonatat e 100 mg capsule Take 1 capsule 3 times a day by oral route as needed for 10 days. 03/26 completed Not Available Not Available Not Available cephalexin 500 mg capsule TAKE 1 CAPSULE BY MOUTH TWICE DAILY 01/21 completed Not Available Not Available Not Available pantoprazo le 40 mg tablet,del ayed release Take 1 tablet every day by oral route before meals for 30 days. 10/30 completed Not Available Not Available Not Available oseltamivi r 75 mg capsule 10/07 completed Not Available Not Available Not Available buspirone 10 mg tablet Take 1 tablet twice a day by oral route for 30 days. 05/27 completed Not Available Not Available Not Available lidocaine 5 % topical patch APPLY 1 PATCH TOPICALLY TO THE SKIN DAILY. MAY WEAR UP TO 12 HOURS 10/07 completed Not Available Not Available Not Available hydrochlor othiazide 12.5 mg capsule 03/[address] plascencia took her off of it. Not Available Not Available Not Available diclofenac sodium 75 mg tablet,del ayed release TAKE 1 TABLET BY MOUTH TWICE DAILY 12/21 completed Not Available Not Available Not Available montelukas t 10 mg tablet Take 1 tablet every day by oral route as directed for 30 days. 2024 active Not Available Not Available Not Avai lable bisacodyl 5 mg tablet,del ayed release TAKE ALL 6 AT 8AM ON 05/05 completed Not Available Not Available Not Available mupirocin 2 % topical ointment 09/05 completed Not Available Not Available Not Available gabapentin 100 mg capsule TAKE 1 CAPSULE BY MOUTH THREE TIMES DAILY DIRECTED 03/[address] plascencia took her off of it. Not Available Not Available Not Available ibuprofen 600 mg tablet Take 1 tablet 3 times a day by oral route after meals for 7 days. 02/02 completed Not Available Not Available Not Available levofloxac in 500 mg tablet TAKE 1 TABLET BY MOUTH DAILY WITH FOOD FOR 7 DAYS 06/14 completed Not Available Not Available Not Available levofloxac in 750 mg tablet 10/07 completed Not Available Not Available Not Available albuterol sulfate HFA 90 mcg/actuat ion aerosol inhaler INHALE 2 PUFFS BY MOUTH EVERY 4 HOURS NEEDED active Not Available Not Available No t Available ketoconazo le 2 % topical cream APPLY TO THE AFFECTED AREA(S) BY TOPICAL ROUTE ONCE DAILY following completio n of clobetaso l 04/07 completed Not Available Not Available Not Available hydroxyzin e HCl 10 mg tablet TAKE 1 TABLET BY MOUTH TWICE DAILY DIRECTED 10/07 completed Not Available Not Available Not Available ondansetro n 4 mg disintegra ting tablet 12/21 completed Not Available Not Available Not Available cefdinir 300 mg capsule TAKE 1 CAPSULE BY MOUTH EVERY 12 HOURS FOR 7 DAYS 03/13 completed Not Available Not Available Not Available fluticason e propionate 50 mcg/actuat ion nasal spray,susp ension SHAKE LIQUID AND USE 2 SPRAYS IN EACH NOSTRIL EVERY DAY DIRECTED 04/24 completed Not Available Not Available Not Available clotrimazo le 1 % topical cream APPLY TO THE AFFECTED AND SURROUNDI NG AREAS OF SKIN BY TOPICAL ROUTE 2 TIMES PER DAY IN THE MORNING AND EVENING FOR 2 WEEKS 10/17 completed Not Available Not Available Not Available naproxen 500 mg tablet 10/07 completed Not Available Not Available Not Available metoclopra mide 10 mg tablet Take 1 tablet twice a day by oral route for 30 days. 03/12 completed Not Available Not Available Not Available amoxicilli n 875 mg-potassi um clavulanat e 125 mg tablet TAKE 1 TABLET BY MOUTH TWICE DAILY UNTIL ALL TAKEN 04/07 completed Not Available Not Available Not Available amoxicilli n 500 mg-potassi um clavulanat e 125 mg tablet TAKE 1 TABLET BY MOUTH EVERY 12 HOURS AFTER MEALS FOR 7 DAYS 10/07 completed Not Available Not Available Not Available Bactrim DS 800 mg-160 mg tablet Take 1 tablet every 12 hours by oral route for 5 days. 11/26 completed Not Available Not Available Not Available Ciprodex 0.3 %-0.1 % ear drops,susp ension INSTILL 4 DROPS INTO AFFECTED EAR(S) BY OTIC ROUTE 2 TIMES PER DAY FOR 7 DAYS 06/28 completed Not Available Not Available Not Available Spiriva with HandiHaler 18 mcg and inhalation capsules 09/05 completed Not Available Not Available Not Available nitrofuran toin monohydrat e/macrocry stals 100 mg capsule TAKE ONE CAPSULE BY MOUTH EVERY TWELVE HOURS FOR FIVE DAYS 12/21 completed Not Available Not Available Not Available lactulose 10 gram/15 mL oral solution TAKE 15 ML BY MOUTH EVERY DAY 09/20 completed Not Available Not Available Not Available hydrochlor othiazide 12.5 mg tablet 05/15 completed Not Available Not Available Not Available Symbicort 160 mcg-4.5 mcg/actuat ion HFA aerosol inhaler INHALE 2 PUFFS BY MOUTH TWICE DAILY active Not Available Not Available No t Available Symbicort 80 mcg-4.5 mcg/actuat ion HFA aerosol inhaler 06/28 completed Not Available Not Available Not Available diclofenac 1 % topical gel APPLY 2 GRAMS TO THE AFFECTED AREA(S) BY TOPICAL ROUTE 4 TIMES PER DAY as needed. 08/06 completed Not Available Not Available Not Available lactulose 10 gram/15 mL (15 mL) oral solution Take 15 mL every day by oral route for 30 days. 03/12 completed Not Available Not Available Not Available lidocaine 5 % topical ointment APPLY TO AFFECTED AREA(S) BY TOPICAL ROUTE 1-4 TIMES DAILY NEEDED 06/28 completed Not Available Not Available Not Available Anoro Ellipta 62.5 mcg-25 mcg/actuat ion powder for inhalation INHALE 1 PUFF BY MOUTH EVERY DAY DIRECTED 09/20 completed Not Available Not Available Not Available Vitals Date Recorded Body height Body mass index (BMI) Body weight Heart rate Oxygen saturation Oxygen saturation in Arterial blood by Pulse oximetry Systolic blood pressure Diastolic blood pressure Provider Name and Address Organization Details Last Updated DateTime 4 149.86 cm 36.1 kg/m2 68217.2 4 g 75 /min 98 % 98 % 120 mm[Hg] 84 mm[Hg] Oly [facility] 4 12:37:44 Date Recorded Pain severity - 0-10 verbal numeric rating [Score] - Reported Provider Name and Address Organization Details Last Updated DateTime 04/24/2024 8 Prerna Velez [place] - [facility] 04/24/2024 12:42:03 Date Recorded Body height Body mass index (BMI) Body weight Heart rate Respiratory rate Oxygen saturation Oxygen saturation in Arterial blood by Pulse oximetry Systolic blood pressure Diastolic blood pressure Provider Name and Address Organization Details Last Updated DateTime 4 149.86 cm 35.2 kg/m2 91137.5 1 g 72 /min 16 /min 98 % 98 % 122 mm[Hg] 80 mm[Hg] RUSS Salcido [facility] 4 11:50:42 Date Recorded Body height Body mass index (BMI) Body weight Heart rate Oxygen saturation Oxygen saturation in Arterial blood by Pulse oximetry Systolic blood pressure Diastolic blood pressure Provider Name and Address Organization Details Last Updated DateTime 5 149.86 cm 36.7 kg/m2 60952.3 7 g 68 /min 98 % 98 % 122 mm[Hg] 64 mm[Hg] Miesha Grover MA [facility] 5 10:39:21 Date Recorded Body height Body mass index (BMI) Body weight Heart rate Oxygen saturation Oxygen saturation in Arterial blood by Pulse oximetry Systolic blood pressure Diastolic blood pressure Provider Name and Address Organization Details Last Updated DateTime 5 149.86 cm 36.4 kg/m2 63644.6 3 g 62 /min 99 % 99 % 124 mm[Hg] 68 mm[Hg] Breann Prescott MA [facility] 5 11:08:53 Date Recorded Body height Body mass index (BMI) Body weight Heart rate Oxygen saturation Oxygen saturation in Arterial blood by Pulse oximetry Systolic blood pressure Diastolic blood pressure Provider Name and Address Organization Details Last Updated DateTime 5 149.86 cm 37 kg/m2 64701.1 2 g 68 /min 96 % 96 % 120 mm[Hg] 64 mm[Hg] Miesha Grover MA [facility] 5 11:40:18 Social History Question Answer Notes LastModified by Organizat ion Details LastModified Time Tobacco Smoking Status Former Smoker quit 20 years ago 10/17/22-LEXIS Stahl [facility] 10/17/2022 12:43:01 Do You Have An Advance Directive? No Information not available 02/13/2022 What Is Your Level Of Alcohol Consumption? Occasional Information not available 12/21/2020 Are You Blind Or Do You Have Difficulty Seeing? No Information not available 10/08/2023 What Is Your Level Of Caffeine Consumption? Moderate Soda & Coffee Information not available 04/24/2024 In The 14 Days Before Symptom Onset, Have You Had Close Contact With A Laboratory-confir med COVID-19 While That Case Was Ill? No Information not available 04/25/2022 In The 14 Days Before Symptom Onset, Have You Had Close Contact With A Person Who Is Under Investigation For COVID-19 While That Person Was Ill? No Information not available 04/25/2022 Have You Been To An Area Known To Be High Risk For COVID-19? No Information not available 04/25/2022 Are You Currently Employed? No Information not available 04/25/2022 Are You Deaf Or Do You Have Serious Difficulty Hearing? No Information not available 10/08/2023 What Type Of Diet Are You Following? REGULAR Information not available 04/24/2024 What Is The Highest Grade Or Level Of School You Have Completed Or The Highest Degree You Have Received? [id number] Information not available 04/25/2022 Are There Any Guns Present In Your Home? No Information not available 03/13/2024 In The Past 7 Days, How Many Days Did You Exercise? 0 Information not available 04/24/2024 How Intense Was Your Typical Exercise? Currently Not Exercising Information not available 04/24/2024 In The Past 7 Days, How Much Pain Have You Granger? A Lot Information not available 04/24/2024 In General, Would You Say You Health Is: Very Good Information not available 04/24/2024 How Would You Describe The Condition Of Your Mouth And Teeth- Including False Teeth Or Dentures? Very Good Information not available 04/24/2024 Each Night, How Many Hours Of Sleep Do You Get? 8 Information no t available 04/24/2024 Has Anyone Ever Told You That You Snore? Yes Information not available 04/24/2024 In The Past 7 Days, How Often Have You Granger Sleepy In The Daytime? Usually Information not available 04/24/2024 # Alcohol Drinks Per Week 0 Information not available 04/24/2024 Do You Have A Medical Power Of Client Application Support Specialist? No Information not available 02/13/2022 What Was The Date Of Your Most Recent Tobacco Screening? 11/04/2024 Information not available 11/04/2024 What Is Your Relationship Status? Single [email or web address] Information not available 08/29/2023 Do You Use Your Seat Belt Or Car Seat Routinely? Yes Information not available 01/22/2024 Do You Have Smoke And Carbon Monoxide Detectors In Your Home? Yes Information not available 01/22/2024 At What Age Did You Start Smoking Tobacco? 15 Information not available 12/21/2020 How Much Tobacco Do You Smoke? No [email or web address] Information not available 05/06/2019 Do You Feel Stressed (tense, Restless, Nervous, Or Anxious, Or Unable To Sleep At Night)? [id number] Information not available 01/22/2024 Do You Use Any Illicit Or Recreational Drugs? No Information not available 03/13/2024 Do You Use Sunscreen Routinely? No Information not available 03/13/2024 Has Tobacco Cessation Counseling Been Provided? No Information not available 11/04/2024 On What Date Was Tobacco Cessation Counseling Provided? 11/04/2024 Information not available 11/04/2024 How Many Years Have You Smoked Tobacco? 20 Information not available 12/21/2020 Do You Or Have You Ever Used Any Other Forms Of Tobacco Or Nicotine? No Information not available 01/22/2024 Sex: Female Functional Status Question Answer Note LastModified by Organization D etails LastModified Time Are you able to care for yourself? Yes Information n ot available 10/08/2023 What is your exercise level? None Information not available 04/24/2024 Mental Status None recorded. Family History Relationship Description Onset Age of this Age Resolved Age Notes LastModified by Organization Details LastModified Time Mother Hypertensive disorder [email or web address] Not available 2014 14:49:11 Father Diabetes mellitus [email or web address] Not available 2014 14:49:11 Notes:No new family history, me/rma Medical History Condition Response Coronary Artery Disease N Other N High Blood Pressure N Atrial Fibrillation N Kidney or Bladder Problems N Thyroid Problems N GI Problems N Depression N COPD N Blood Clots N Have you had a mammogram in the last yea r? N Skin Problems N Anemia N Heart Attack (DC) N Anxiety Disorder N Diabetes N Muscle, Joint, or Bone Problems N Seizures/Epilepsy N Have you had a colonoscopy in the last 1 0 years? N Acid Reflux (GERD) N Cancer N Stroke N Asthma Y Allergies N Have you had a PSA blood test in the las t year? N High Cholesterol Y Hepatitis N Liver Disease N Headaches N Heart Failure N Osteoporosis N Gynecological History Statement/Question Response If Post Menopausal, Age at Menopause 48 Obstetrics History GPAL:G 1 P 1 0 0 1 Type Value Full Term 1 Living 1 Total 1 Immunizations Vaccine Type Date Status Note Provider Nam e and Address Organization Details Recorded Time COVID-19, mRNA, LNP-S, PF, 30 mcg/0.3 mL dose 1 completed Miesha Grover MA null, [place] - [facility] 11/04/2024 11:37:43 COVID-19, mRNA, LNP-S, PF, 30 mcg/0.3 mL dose 1 completed Not Available Pending sale to [facility] 08/21/2023 09:31:04 Influenza, split virus, quadrivalent, preservative 6 completed Not Available Pending sale to [facility] 07/25/2019 02:41:31 pneumococcal, unspecified formulation 2 completed Not Available Pending sale to [facility] 08/21/2023 09:31:04 Influenza, split virus, quadrivalent, preservative 7 completed Not Available Pending sale to [facility] 07/25/2019 02:33:58 Influenza, split virus, quadrivalent, preservative 8 completed Not Available Pending sale to [facility] 07/25/2019 02:36:29 Influenza, split virus, quadrivalent, preservative 8 completed Not Available Pending sale to [facility] 07/25/2019 02:36:29 Influenza, split virus, quadrivalent, preservative 9 completed Not Available Pending sale to [facility] 07/25/2019 02:38:12 Influenza, split virus, quadrivalent, preservative 0 completed Frederick Ravi [place] null, [place] [facility] 04/05/2020 11:24:36 Tdap 2 completed Frederick Ravi [place], [place] [facility] 11/10/2021 13:32:57 Influenza, split virus, quadrivalent, preservative 2 completed Huma Richard MD Attn: Accounting[address] [place], [address], [facility] 03/27/2022 14:20:23 Influenza, high-dose, trivalent, PF 4 completed Eli Plascencia MD Attn: Accounting,[address] [place], [address], [facility] - [place] 04/24/2024 15:05:49 Pneumococcal conjugate PCV20, polysaccharide [id number] conjugate, adjuvant, PF 5 completed Oly Meyer MA [facility], [place] - SI 11/04/2024 16:49:58 Past Encounters Encounter ID Performer Location Encounter Start Date Encounter Closed Date Diagnosis/Indication Diagnosis SNOMED-CT Code Diagnosis ICD10 Code Diagnosis Note [id number] Huma Richard MD [facility] (Adult Med) [address] [place] [address]2869[address]913 0 06/04/2014 15:16:45 06/06/2014 23:55:11 Non-cardiac chest pain [id number] Chronic ob structive pulmonary disease 61573454 Tobacco de pendence syndrome 06475130 [id number] Huma Richard MD [facility] (Adult Med) [address] [place] [address] [phone] 0 09/07/2014 11:50:44 09/07/2014 12:47:41 Anxiety hyperventilation 65892144 Chronic ob structive pulmonary disease 06677966 Ex-smoker 1604789 [id number] Homar Wilson MD [facility] [address] [place] [address] 09/16/2014 14:13:21 09/16/2014 17:47:44 Acute left otitis media 856133853 Perforatio n of tympanic membrane 75279054 [id number] Homar Wilson MD [facility] [address] [place] [address] 10/11/2014 14:36:17 10/11/2014 15:34:34 Perforation of tympanic membrane 48367818 medium size posterior perforatio n on LT [id number] MD Everett Mayer (Adult Med) [address] [place] [address] 74745-407 0 12/17/2014 11:45:36 12/17/2014 15:10:10 Acute bronchitis 32848567 Chronic ob structive pulmonary disease 86529847 Ex-smoker 8794583 [id number] MD Everett Mayer (Adult Med) [address] [place] [address] 24615-609 0 06/16/2015 14:35:03 06/20/2015 11:40:12 Chronic obstructive pulmonary disease 17346900 J44.9 Ex-smoker 5050677 Z87.89 1 [id number] MD Everett Mayer (Adult Med) [address] [place] [address] 90258-172 0 10/13/2015 15:00:39 10/13/2015 15:58:49 Chronic obstructive pulmonary disease 00031234 J44.9 Ex-smoker 8564015 Z87.89 1 [id number] MD Everett Mayer (Adult Med) [address] [place] [address] 09519-648 0 03/15/2016 14:42:06 03/15/2016 15:53:27 Chest wall pain 926885969 R07.89 Vertigo 528570818 R42 Chronic ob structive pulmonary disease 48567067 J44.9 Ex-smoker 6407049 Z87.89 1 Non-cardia c chest pain 837903649 R07.89 Administra tion of influenza vaccine 87408995 Z23 Administra tion of pneumococcal vaccine 10484937 Z23 [id number] MD Everett Mayer (Adult Med) [address] [place] [address] 99848-737 0 06/28/2016 11:53:39 06/28/2016 16:28:10 Chronic constipation 354413224 K59.00 Chronic ab dominal pain 677599760 R10.9 Screening colonoscopy 44 8165951 Z12.11 [id number] MD Everett Mayer (Adult Med) [address] [place] [address] 99079-439 0 09/11/2016 16:00:50 09/11/2016 17:14:17 Gallstone 471864155 K80.20 She will discuss this issue with the general surgeon in the near future. Copy of U/S of gall bladder provided to patient to day in office. Chronic ob structive pulmonary disease 67914432 J44.9 Perforatio n of tympanic membrane 29829441 H72.92 Tobacco de pendence syndrome 26886307 F17.290 Acute sinusitis 10732801 J01.90 [id number] MD Everett Mayer (Adult Med) [address] [place] [address] 03590-509 0 03/12/2017 15:07:16 03/12/2017 17:34:37 Administration of influenza vaccine 22896904 Z23 Done in this office, she tolerated well, no any immediate side rection, she had annual flu shot last year as well. Chest wall pain 21298830 6 R07.89 Chronic ob structive pulmonary disease 03287550 J44.9 Non-cardia c chest pain 132071447 R07.89 Resolved. Tobacco de pendence syndrome 07532701 F17.290 Insomnia 833434626 G47.0 0 [id number] [facility] [address] [place] [address] 29506-773 0 09/05/2017 15:25:47 09/05/2017 16:56:08 Chronic obstructive pulmonary disease 25651877 J44.9 Tobacco de pendence syndrome 86550150 F17.290 Generalize d osteoarthritis 853272130 M15.9 Vertigo 466568364 R42 [id number] Huma Richard MD [facility] (Adult Med) [address] [place] [address] [id number] 0 02/10/2018 16:01:21 02/10/2018 16:29:17 Calculus of gallbladder with cholecystitis 13271659 K80.10 s/P cholecyste ctomy. Wound healed well. Chronic ob structive pulmonary disease 00067379 J44.9 Acid reflux 059081544 K2 1.9 [id number] MD Everett Mayer (Adult Med) [address] [place] [address] 18914-350 0 05/01/2018 14:00:16 05/02/2018 10:44:56 Pain in right knee 8267937077 16346 M25.561 She has cane at home.She declines knee brace. Chronic ob structive pulmonary disease 84954647 J44.[address] she wants refills of her inhalers. Administra tion of influenza vaccine 27643851 Z23 Done in this office, she tolerated well, no any immediate side rection, she had annual flu shot last year as well. She tolerated shot well. [id number] MD Everett Mayer (Adult Med) [address] [place] [address] 37407-707 0 10/30/2018 10:11:47 10/30/2018 11:55:12 Acute bronchitis 44337983 J20.9 [id number] MD Everett Mayer (Adult Med) [address] [place] [address] 01866-089 0 02/02/2019 15:38:53 02/02/2019 17:23:58 Hyperkeratosis 266033862 L85.9 Re-dress the right heel with triple antibiotic s ointment and verbal oral instructio ns of wound care. [id number] [facility] [address] [place] [address] 98410-894 0 04/06/2019 14:53:21 04/06/2019 17:32:43 Administration of influenza vaccine 34207798 Z23 Done in this office, she tolerated well, no any immediate side rection, she had annual flu shot last year as well. She tolerated shot well. Rib pain 771505586 R07.8 1 Left side. Discussed with patient. Immunity t o measles determined by serology 9790214563 82311 Z78.9 She wanting to know if she is immune to measles, she is qa adopted kid. [id number] MD Everett Mayer (Adult Med) [address] [place] [address] 14357-290 0 05/06/2019 14:20:21 05/06/2019 21:26:19 Dry cough 79965350 R05 Hyperglycemia 25649376 R 73.9 HbA1C in office 5.35 [id number] Huma Richard MD [facility] (Adult Med) [address] [place] [address] 01744-133 0 08/06/2019 14:50:39 08/06/2019 16:03:34 Chronic obstructive pulmonary disease 93483104 J44.[address] she wants refills of her inhalers. Tobacco de pendence syndrome 59841998 F17.290 Urge her to quit smoking. She quit cigarettes smoking and drinking already she said. [id number] MD Everett Mayer (Adult Med) [address] [place] [address] 72792-769 0 11/06/2019 10:24:30 11/09/2019 12:11:17 Chronic obstructive pulmonary disease 36097801 J44.[address] she wants refills of her inhalers. She has enough inhalers 11-06-2019 . Pain in right heel 33419 44076 279112 M79.671 She thinks that she has infection, agreed for antibiotic s and store leader referral. [id number] MD Everett Mayer (Adult Med) [address] [place] [address] 76190-958 0 11/13/2019 10:31:33 11/16/2019 11:32:08 Microscopic hematuria 315522201 R31.21 Asymptomat ic microscopi c hematuria. [id number] MD Everett Mayer (Adult Med) [address] [place] [address] 49641-983 0 12/09/2019 09:36:28 12/10/2019 15:46:48 Allergy to drug 484320973 T50.905A Resolved after medication was stopped and being treated at ER. Chronic ob structive pulmonary disease 80290205 J44.[address] she wants refills of her inhalers. She has enough inhalers 11-06-2019 . [id number] ADIN EASON DPM [facility] [address] [place] [address] 12/23/2019 09:48:26 12/29/2019 16:30:25 Foot callus 619468421 L84 Tinea pedis 7791695 B35. 3 Onychomycosis 459083485 B35.1 Pain in right foot 78264 25307 99769 M79.671 Pain in left foot 580447 0498 00834 M79.672 Atherosclerosis 79635410 I70.90 [id number] MD Everett Mayer (Adult Med) [address] [place] [address] 45287-489 0 02/11/2020 08:12:20 02/12/2020 10:32:41 Chronic obstructive pulmonary disease 35949493 J44.[address] she wants refills of her inhalers. She has enough inhalers 11-06-2019 . Refill today 02-11-2020 . [id number] Yaya Villa [facility] [address] [place] [address] 03/08/2020 10:24:56 03/17/2020 13:44:36 Cellulitis of toe of left foot 4886888927 5216278 L03.032 Foot callus 732226649 L8 4 Tinea pedis 3764309 B35. 3 Onychomycosis 515093255 B35.1 Pain in right foot 47578 46913 42229 M79.671 Pain in left foot 578084 7725 56538 M79.672 Atherosclerosis 77621535 I70.90 [id number] MD Everett Mayer (Adult Med) [address] [place] [address] 98532-204 0 04/05/2020 10:48:38 04/07/2020 11:49:29 Administration of influenza vaccine 06537239 Z23 Done in this office, she tolerated well, no any immediate side rection, she had annual flu shot last year as well. She tolerated shot well. [id number] MD Everett Mayer (Adult Med) [address] [place] [address] 91997-825 0 05/17/2020 13:27:46 05/18/2020 10:55:46 Acute low back pain 043182783 M54.5 Discussed with patient, will try something for the mean time. She agreed. [id number] MD Everett Mayer (Adult Med) [address] [place] [address] 83088-547 0 08/15/2020 08:02:17 08/16/2020 11:58:19 Spasm of back muscles 305047029 M62.830 Discussed with patient, she still has baclofen, she will try and also is willing to try topical lidocaine cream . [id number] MD Everett Mayer (Adult Med) [address] [place] [address] 32241-429 0 10/26/2020 08:06:05 10/28/2020 15:41:59 Rib pain 847312213 R07.81 Left side. Discussed with patient. On diclofenac 75 mg, worked well. negative rib x ray she said. [id number] MD Everett Mayer (Adult Med) [address] [place] [address] 97470-149 0 12/21/2020 10:24:44 12/23/2020 22:32:35 Chronic recurrent sinusitis 737699257 J32.9 Swelling of right nasal mucosa, old perforated left ea drum, hard to hear. Asthma 040663295 J45.90 9 Stable. Abdominal wall pain 1620 26984 R10.9 Comes and goes, pen needle like over the right lower abdominal wall, no pain today, off and on for about one month. no fever, regular BM, abdomen is soft, no rebounding sign, active bowel sound, no mass. No skin rashes. No visible skin lesion. [id number] MD Everett Mayer (Adult Med) [address] [place] [address] 11945-516 0 03/30/2021 09:42:50 04/05/2021 15:12:56 Hypertensive disorder 91256844 I10 Will D/C HCTAZ which made her dizzy and numbness of arms and face,. [id number] MD Everett Mayer (Adult Med) [address] [place] [address] 94967-944 0 04/14/2021 09:32:55 04/21/2021 13:07:34 Urinary tract infectious disease 58655405 N39.0 Wants some ABX treatment. [id number] MD Everett Mayer (Adult Med) [address] [place] [address] 16183-247 0 05/15/2021 10:21:32 05/16/2021 10:42:51 Chronic obstructive pulmonary disease 45250206 J44.[address] she wants refills of her inhalers. She has enough inhalers 11-06-2019 . Refill today 02-11-2020 ., She said that symbicort not working too well , wishes to change, will try 05-15-2021 . Tobacco de pendence syndrome 93606539 F17.290 Urge her to quit smoking. She quit cigarettes smoking and drinking already she said. Screening mammography Z12.31 Annual screening. [id number] MD Everett Mayer (Adult Med) [address] [place] [address] 64909-150 0 06/14/2021 10:13:33 06/16/2021 13:02:19 Diverticulitis of colon 333506447 K57.32 Some tenderness on the LLQ, active bowel sound, but no rebounding sign, abdomen is soft all over all. She is willing to try med as ordered, but been advised to go to ER any time for any CONCERN, SHE AGREED.ALS O WILL REFER TO GI for endoscopic evaluation and colon cancer screening. Screening for malignant neoplasm of colon 317447452 Z12.11 Will refer. [id number] Huma Richard MD [facility] (Adult Med) [address] [place] [address] 45841-098 0 09/20/2021 10:25:14 09/21/2021 10:11:36 Recurrent urinary tract infection 573229134 N39.0 Irritation of urination. Chronic ob structive pulmonary disease 84451470 J44.[address] she wants refills of her inhalers. She has enough inhalers 11-06-2019 . Refill today 02-11-2020 ., She said that symbicort not working too well , wishes to change, will try 05-15-2021 . Anoro ellipta seems making her cough, will change different inhaler , hopefully will solve the issue. Ex-smoker 7427131 Z87.89 1 Quit smoking , but still needs inhalers to releave the difficulty of breath. Generalize d osteoarthritis 809070240 M15.9 Wants wheelchair to improve her mobility, and her famility can help wheeling her around , she uses a cane , also wants handicappe d parking card. Now she said that she wants walker with wheels. Last month she fell at shopping center because her knees gave up. Screening mammography 489668 Z12.31 Annual screening. [id number] Jofinn Richard MD [facility] (Adult Med) [address] [place] [address] 63729-745 0 10/30/2021 14:21:07 10/31/2021 09:14:00 Chronic obstructive pulmonary disease 45502985 J44.[address] she wants refills of her inhalers. She has enough inhalers 11-06-2019 . Refill today 02-11-2020 ., She said that symbicort not working too well , wishes to change, will try 05-15-2021 . Anojd comerta seems making her cough, will change different inhaler , hopefully will solve the issue. Tobacco de pendence syndrome 78960162 F17.290 Urge her to quit smoking. She quit cigarettes smoking and drinking already she said. Generalize d osteoarthritis 861698113 M15.9 Wants wheelchair to improve her mobility, and her famility can help wheeling her around , she uses a cane , also wants handicappe d parking card. Now she said that she wants walker with wheels. Last month she fell at shopping center because her knees gave up. Ex-smoker 4858901 Z87.89 1 Quit smoking , but still needs inhalers to releave the difficulty of breath. Screening mammography 24 367538 Z12.31 Annual screening. [id number] MD Everett Mayer (Adult Med) [address] [place] [address] 40467-896 0 11/10/2021 12:04:21 11/13/2021 10:19:36 Recurrent urinary tract infection 769735682 N39.0 urine culture + for hemolytic strep B. per v/o Dr. Richard, order amoxicilli n 500 mg BID for 5 days after meals. D/C cipro. Advised her to go to ER any time for any concern. she agreed, she might have to cancel the trip. 11-10-2021 . Administra tion of diphtheria, pertussis, and tetanus vaccine 719851335 Z23 [id number] [facility] [address] [place] [address] 93994-118 0 12/21/2021 10:33:17 12/26/2021 11:30:35 Chronic obstructive pulmonary disease 32957520 J44.[address] she wants refills of her inhalers. She has enough inhalers 11-06-2019 . Refill today 02-11-2020 ., She said that symbicort not working too well , wishes to change, will try 05-15-2021 . Anoro ellipta seems making her cough, will change different inhaler , hopefully will solve the issue. Tobacco de pendence syndrome 60945844 F17.290 Urge her to quit smoking. She quit cigarettes smoking and drinking already she said. [id number] Huma Richard MD [facility] (Adult Med) [address] [place] [address] 16006-539 0 01/29/2022 12:19:00 01/30/2022 12:08:57 Type 2 diabetes mellitus 29491796 E11.65 Diabetic diet, exercise and lose weight. Osteoarthr itis of knee 930438660 M17.9 Stable. Chronic ob structive pulmonary disease 48613402 J44.[address] she wants refills of her inhalers. She has enough inhalers 11-06-2019 . Refill today 02-11-2020 ., She said that symbicort not working too well , wishes to change, will try 05-15-2021 . Anoro ellipta seems making her cough, will change different inhaler , hopefully will solve the issue. Smoker 59326246 F17.200 Advised her to quit smoking. [id number] Yaya Villa [facility] [address] [address] 02/13/2022 14:42:13 02/23/2022 13:56:41 Tinea pedis 1742852 B35.3 Onychomycosis 235576129 B35.1 Asteatosis cutis 9559848 0 L85.3 Diabetic p eripheral neuropathy 103321114 E11.42 Hyperglyce adin due to type 2 diabetes mellitus 2328197977 18828 E11.65 [id number] Huma Richard MD [facility] (Adult Med) [address] [place] [address] 39047-512 0 03/26/2022 14:12:19 03/27/2022 08:16:14 Type 2 diabetes mellitus 03817898 E11.65 Diabetic diet, exercise and lose weight. Diabetic p eripheral neuropathy 844832811 E11.40 Discussed with patient, she agreed to try med as ordered. Screening for malignant neoplasm of colon 831619178 Z12.11 Will refer. Screening for malignant neoplasm of cervix 842810398 Z12.4 She agreed. Administra tion of influenza vaccine 43306775 Z23 Done in this office, she tolerated well, no any immediate side reaction, she had annual flu shot last year as well. She tolerated shot well. Dyslipidem ia due to type 2 diabetes mellitus 1392724889 02 E78.5 Low animal and low saturated fat diet, [id number] [facility] [address] [place] [address] 04/25/2022 10:27:47 04/25/2022 14:33:10 Elevated left intraocular pressure 3058604471 3858746 H40.052 Dry eyes 686841223 H04.1 23 Prediabetes 174059091 R7 3.03 [id number] Yaya Villa [facility] [address] [place] [address] 05/17/2022 11:10:24 05/21/2022 10:41:33 Tinea pedis 6003141 B35.3 continue topical antifungal to daja foot rash and nails 1-10 Onychomycosis 905516693 B35.1 Asteatosis cutis 1630528 0 L85.3 Diabetic p eripheral neuropathy 866194771 E11.42 Hyperglyce adin due to type 2 diabetes mellitus 9925124149 11340 E11.65 [id number] Huma Richard MD [facility] (Adult Med) [address] [place] [address] 06/11/2022 10:12:04 06/12/2022 16:35:32 Obesity 137939699 E66.9 BMI is 33.9 as 06-11-2022 , advised to watch diet, exercise and keep the weight down. Acute bronchitis 2491491 2 J20.9 Discussed with patient, she will try meds as ordered. HIV screen ing declined 3551211690 27848 Z53.20 She refuse today 06-11-2022 . Screening for malignant neoplasm of colon 873944428 Z12.11 Will refer. She has cologuard at home but has not tested yet she said, as 06-11-2022 . Screening for malignant neoplasm of cervix 137539160 Z12.4 She agreed. She has scheduled this month she said , 06-11-2022 . [id number] MD Everett Mayer (Adult Med) [address] [place] [address] 95228-413 0 08/16/2022 09:50:20 08/17/2022 15:13:36 Chronic obstructive pulmonary disease 47963769 J44.[address] she wants refills of her inhalers. She has enough inhalers 11-06-2019 . Refill today 02-11-2020 ., She said that symbicort not working too well , wishes to change, will try 05-15-2021 . Anoro ellipta seems making her cough, will change different inhaler , hopefully will solve the issue. Dyslipidemia 587372578 E 78.5 On atorvastat in. [id number] ADIN EASON DPM [facility] [address] [place] [address] 10/17/2022 12:10:33 10/31/2022 13:48:42 Tinea pedis 6463309 B35.3 Onychomycosis 343190574 B35.1 Idiopathic peripheral neuropathy 48852624 G60.9 [id number] [facility] [address] [place] [address] 19765-831 0 10/25/2022 12:23:07 10/26/2022 14:27:34 Otitis media 67784267 H66.92 Left ear, with exudate and perforated drum, she is aware of it, will refer to ENT. culture of left ear obtained, will send to culture, and empirical ABS ordered. [id number] MD Everett Mayer (Adult Med) [address] [place] [address] 15408-689 0 02/27/2023 10:07:23 03/01/2023 11:05:54 Anxiety 18394806 F41.9 Dose not want naproxen, buspirone, but tizanidine for back pain since she fell a while ago. Chronic low back pain 27 2348893 M54.50 contusion . will refill tizanidine . Obesity 255150702 E66.9 BMI is 33.9 as 06-11-2022 , advised to watch diet, exercise and keep the weight down. As 02-27-23, BMI is 35.5. SARS-CoV-2 mRNA vaccine declined 9778991735 Z28.21 She declined 02-27-23. HIV screen ing declined 4815649867 58316 Z53.20 She refuse today 06-11-2022 . Colon canc er screening declined 3691535258 9109 Z53.20 She declined 02-27-23. Cervical c ancer Papanicolaou smear screening declined 0907027928 01529 Z53.20 She declined 02-27-23. Statin declined 75479109 0 Z53.20 She is not sugar diabetic, she declined 02-27-23. [id number] Nam Romero MD [facility] [address] [address] 04/08/2023 10:38:20 04/08/2023 14:20:49 Perforation of left tympanic membrane 8913171898 272628 H72.92 I would not recommend surgical interventi on will check a hearing test for possible hearing aidfollow- up after audiogram Chronic rhinitis 2012328 6 J31.0 Deviated nasal septum 12 9618754 J34.2 [id number] Shaq Ngo MD [facility] [address] [facility] [address] [place] [address] 05/27/2023 11:23:25 05/28/2023 09:55:01 Near syncope 832300064 R55 pts sx noted in hpi. sx consistent w/ postural hypotensio n. -pt on no bp meds at home-pt aware of provoking factors-re cd increased water consumptio n 1-2 L /day, pt states is not getting 1 L h20 / day currently Vertigo 976499531 R42 reported 1 event of true vertigo on day of ed presentati on has not happened again, but has had her pre syncope events -unclear if vertigo was single isolated event or related to her remote hx of tm rupture, pt states was told via ent surgery might not be the best option-con t to monitor Chest pain 55529451 R07. 9 discussed the results of pts stress test (normal) echo (normal) w/ her today, unlikely her presentati on was cardiac related. -cont to monitor sx-pt considerin g transferin g care / pcp care to site 47 as it is better for her logistical ly [id number] Huma Richard MD [facility] (Adult Med) [facility] [place] [address] 06/14/2023 12:12:47 06/17/2023 15:51:47 Acute respiratory infections 513889446 J22 She wants some ABT for the chest cold. Chronic ob structive pulmonary disease 12621450 J44.[address] she wants refills of her inhalers. She has enough inhalers 11-06-2019 . Refill today 02-11-2020 ., She said that symbicort not working too well , wishes to change, will try 05-15-2021 . Anoro ellipta seems making her cough, will change different inhaler , hopefully will solve the issue. Dyslipidem ia due to type 2 diabetes mellitus 9195280475 02 E78.5 Low animal and low saturated fat diet, She agred for the med to low cholestero l. Type 2 bruna betes mellitus 03823174 E11.65 Diabetic diet, exercise and lose weight. Obesity 831348850 E66.9 BMI is 33.9 as 06-11-2022 , advised to watch diet, exercise and keep the weight down. As 02-27-23, BMI is 35.5. BMI is 35.7 today 06-14-23. SARS-CoV-2 mRNA vaccine declined 9745461055 Z28.21 She declined 02-27-23. She declined today 06-14-23. Cervical c ancer Papanicolaou smear screening declined 4389728401 92449 Z53.20 She declined 02-27-23. She declined today 06-14-23. Colon canc er screening declined 6335232483 9109 Z53.20 She declined 02-27-23. She declined today 06-14-23. HIV screen ing declined 0274675677 92657 Z53.20 She refuse today 06-11-2022 .. She declined today. 06-14-23. [id number] Huma Richard MD [facility] (Adult Med) [address] [place] [address] 46077-232 0 07/24/2023 12:26:26 07/26/2023 15:27:43 Persistent cough 538305911 R05.3 Will refer to lung specialist , she agreed. will [facility] promethazi ne syrup [facility], only cost 1.89 dollars. Asthma 820591745 J45.90 9 Stable. Chronic ob structive pulmonary disease 77552335 J44.[address] she wants refills of her inhalers. She has enough inhalers 11-06-2019 . Refill today 02-11-2020 ., She said that symbicort not working too well , wishes to change, will try 05-15-2021 . Anoro ellipta seems making her cough, will change different inhaler , hopefully will solve the issue. [id number] Huma Richard MD [facility] (Adult Med) [address] [place] [address] 31583-656 0 08/29/2023 17:00:22 09/03/2023 09:35:18 Viral upper respiratory tract infection 175876976 J06.9 Recovering . , to continue isolation, avoid public environmen t. Obesity 779853523 E66.9 BMI is 33.9 as 06-11-2022 , advised to watch diet, exercise and keep the weight down. As 02-27-23, BMI is 35.5. BMI is 35.7 today 06-14-23. As today 08-29-23, BNI up to 36.8. Chronic low back pain 27 3986069 M54.50 contusion . will refill tizanidine . and lidocaine patch. [id number] Eli Plascencia MD [facility] [facility] ([facility] [address] [place] [address] [phone] 10/08/2023 11:24:46 10/08/2023 14:03:26 Low back pain 574062439 M54.50 Fatigue 14492517 R53.83 Screening for cardiovascular system disease 352373286 Z13.6 Screening for malignant neoplasm of colon 126344484 Z12.11 Paresthesi a of lower extremity 612027473 R20.2 [id number] Nam Romero MD [facility] [address] [place] [address] 10/07/2023 11:33:32 10/09/2023 12:00:24 Otitis externa 0120476 H60.91 mild inflammati on keep ear dry follow back after audiogram [id number] ADIN EASON DPM [facility] [address] [place] [address] 10/09/2023 12:28:49 10/11/2023 14:55:44 Tinea pedis 8823213 B35.3 Onychomycosis 168843715 B35.1 Idiopathic peripheral neuropathy 34103882 G60.9 [id number] Eli Plascencia MD [facility] (Adult Med) [address] [place] [address] [phone] 0 12/20/2023 10:09:07 12/20/2023 10:56:18 Abdominal pain 42662782 R10.9 Chronic ob structive pulmonary disease 53330546 J44.9 Dyslipidemia 386743379 E 78.5 [id number] [facility] [address] [place] [address] [phone] 0 01/22/2024 09:45:39 01/22/2024 10:32:51 Overweight 378273822 E66.3 Diverticul itis of sigmoid colon 116557446 K57.32 [id number] MD Everett Neumann (Adult Med) [address] [place] [address] [phone] 0 02/19/2024 11:05:13 02/19/2024 11:45:48 Obesity 101135592 E66.8 Diverticulitis 399973515 K57.92 Prediabetes 532261935 R7 3.03 [id number] MD Everett [facility] (Adult Med) [address] [place] [address] 91660-730 0 02/26/2024 15:59:52 02/26/2024 17:06:26 Diverticulitis 540768978 K57.92 [id number] MD Everett Neumann (Adult Med) [address] [place] [address] 85801-412 0 03/13/2024 10:05:28 03/13/2024 11:30:07 Low back pain 713368867 M54.50 Abdominal pain 90130990 R10.9 Screening for cardiovascular system disease 780080375 Z13.6 [id number] MD Everett [facility] (Adult Med) [address] [place] [address] 46382-162 0 04/07/2024 11:09:56 04/07/2024 12:31:02 Diverticulitis of sigmoid colon 390773798 K57.32 [id number] MD Everett Neumann (Adult Med) [address] [place] [address] 13420-141 0 04/21/2024 15:09:11 04/21/2024 17:01:44 Diarrhea 71086909 R19.7 [id number] MD Everett [facility] (Adult Med) [address] [place] [address] [phone] 0 04/24/2024 11:46:57 04/24/2024 13:37:08 Adult health examination 569328385 Z00.00 Health Risk Assessment collected and reviewed Administra tion of influenza vaccine 95011838 Z23 Postmenopausal state 764 36827 Z78.0 [id number] MD Everett Neumann (Adult Med) [address] [place] [address] [phone] 0 05/27/2024 11:37:12 05/27/2024 12:04:05 Obesity 882497861 E66.9 Dyslipidemia 390996537 E 78.5 Diverticulitis 914554086 K57.92 Gastroesop hageal reflux disease without esophagitis 256020328 K21.9 Prediabetes 976844470 R7 3.03 [id number] MD Everett Neumann (Adult Med) [address] [place] [address] 85505-456 0 07/24/2024 10:05:36 07/24/2024 11:55:43 Body mass index 30+ - obesity 021554510 Z68.36 Obesity 392348273 E66.9 Dyspnea on exertion 6084 5006 R06.09 Viral syndrome 046663303 B34.9 [id number] Eli Plascencia MD [facility] (Adult Med) [address] [place] [address]80[address]242 0 08/25/2024 10:26:24 08/25/2024 11:31:36 Gastroesophageal reflux disease without esophagitis 264858292 K21.9 Dyslipidemia 037958756 E 78.5 Asthma 729599354 J45.90 9 Renewal of prescription 068973752 Z76.0 [id number] Eli Plascencia MD [facility] (Adult Med) [address] [place] [address] 81038-516 0 11/04/2024 10:59:53 11/04/2024 12:28:19 Severe obesity 1023253057 9104 E66.812 E66.01 Z68.37 Obese class II 607276107 1 78921 E66.812 Chronic rhinitis 0706491 6 J31.0 Pneumococc al vaccination given 808351781 Z23 Dyslipidemia 545166554 E 78.5 Gastroesop hageal reflux disease without esophagitis 440491742 K21.9 Prediabetes 899146157 R7 3.03 Health Concerns Section Related Observation LastModified by Organization Detai ls LastModified Time None Recorded Concern Status LastModified by Organization Details LastModified Time None Recorded Advance Directives Directive N: Payers Encounter Date Sequence Insurance Name Policy Number Policy Li Covered Member ID Li Member ID Guarantor Name 04/24/2024 2 [place] MEDICARE REPLACEMENT PRIMARY) Chanel Herr [id number] Chanel Herr 04/24/[address] [facility] (MEDICARE REPLACEMENT/AD VANTAGE - HMO) [id number] Chanel Herr [id number] Chanel Herr 05/27/2024 2 [place]IC[place] REPLACEMENT PRIMARY) Chanel Herr [id number] Chanel Herr 05/27/[address] [facility] (MEDICARE REPLACEMENT/AD VANTAGE - HMO) [id number] Chanel Herr [id number] Chanel Herr 07/24/2024 2 [place]ICARE REPLACEMENT PRIMARY) Chanel Herr [id number] Chanel Herr 07/24/[address] [facility] (MEDICARE REPLACEMENT/AD VANTAGE - HMO) [id number] Chanel Gina Herr [id number] Chanel Herr 08/25/2024 2 [place] MEDICARE REPLACEMENT PRIMARY) Chanel Herr [id number] Chanel Herr 08/25/[address] [facility] (MEDICARE REPLACEMENT/AD VANTAGE - HMO) [id number] Chanel Gina Herr [id number] Chanel Herr 11/04/2024 2 [place]ARE OR MEDICARE REPLACEMENT PRIMARY) Chanel Herr [id number] Chanel Herr 11/04/[address] [facility] (MEDICARE REPLACEMENT/AD VANTAGE - HMO) [id number] Chanel Herr [id number] Chanel Herr Notes Date Note Type Note Provider Name and Address Organization Details Recorded Time 04/24/2024 text/html MAW 2Reported bypatient.Diet and Nutrition:discussed diet improvement Fracture Risk:no history of fractures; no sudden unexplained fractures Concentration and Memory:no decreased concentrating ability; no memory lapses or loss; does not forget words Speech/Motor difficulties:no speech difficulties; no difficulty expressing formulated concepts; no difficulty with fine manipulative tasks; no difficulty writing/copying; no slowed reaction time; does not knock things over when trying to pick them up Hearing:loss of hearing: in both ears Vision:no vision problems Activities of Daily Living:able to bathe with limited or no assistance; able to contol urination and bowels; able to dress with limited or no assistance; able to feed self with limited or no assistance; able to get out of chair or bed with limited or no assistance; able to groom with limited or no assistance; able to toilet with limited or no assistance Instrumental Activities of Daily Living:able to do house work with limited or no assistance; able to grocery shop with limited or no assistance; able to manage medications with limited or no assistance; able to manage money with limited or no assistance; able to prepare meals with limited or no assistance; able to use the phone with limited or no assistance Falls Risk Assessment:no frequent falls while walking; no fall in the past year; no fall since last visit; no dizziness/vertigo Home Safety:no unsafe peg hazzards; no unsafe stairs; working smoke/CO detectors; practicing 'safer sex'; no fire arms; good lighting in the home;does not have hand bars in the bathroom/shower Eli Plascencia MD Attn: Accounting, [address] , [place], [address], [place] [facility] 04/24/2024 15:06:17 05/27/2024 text/html diverticulitis s he had her colonoscopies she did have a small intrinsic compression that gi saw and they are going to be scoped in 5 years. Dyslipidemia she is on her atorvastatin trying to get better with her diet. GERD doing well on famotidine would like refill. Prediabetes she could do better with simple carbohydrate reduction. She says she feels great Eli Plascencia MD Attn: Accounting, [address] [facility], [place], [address], [facility] 05/27/2024 12:13:02 07/24/2024 text/html your follow up. She had some cough she also describes some achiness in her left arm workup was nondiagnostic and she was diagnosed with a viral syndrome. She does have some dyspnea on exertion and some achiness in her left arm from time to time it was unrelated to movement. She states that she can not go up a flight of stairs because she gets too short of breath. No syncope or presyncope no diarrhea no nausea vomiting today. She has has had some episodes where she becomes intensely diaphoretic Eli Plascencia MD Attn: Accounting, [address] [facility], [place], [address], [place] [facility] 07/25/2024 14:41:39 08/25/2024 text/html she has not had the testing yet her GERD has been doing fine dyslipidemia taking the atorvastatin her asthma has been doing okay she has not had anymore though sweaty spells that sent her to the emergency room back in July Eli Plascencia MD Attn: Accounting, [address] [facility], [place], [address], [place] [facility] 09/27/2024 16:02:46 11/04/2024 text/html She is having problems with a little bit of sinus congestion that is clear that has been responsive to nothing over the counter dyslipidemia she needs to basically take her medication and get more active with watching her intake of red meat GERD stable no nausea no vomiting Pepcid doing well could stand to lose a few lb prediabetes she needs to focus on her diet and walking Eli Plascencia MD Attn: Accounting,[address] [facility], [place], [address], [facility] 11/08/2024 15:36:19 OBGyn Episode No OBEpisode recorded.
== END 2024-11-12 10:42 | disposition home or self-care (01) ==
PROVIDERS: PCP Internal Medicine; Visit Provider Internal Medicine
DX: J31.2 Chronic pharyngitis (principal)
CPT/HCPCS: 87070